=== PATIENT | male | born 1960 | race Caucasian/White ===

== ENCOUNTER 2016-12-16 12:50 | Observation (INO) ==
[2016-12-16] MEDS ORDERED: SODIUM CHLORIDE 0.9% 500 ML IV STA (14:24)
[2016-12-16] MEDS ORDERED: ENOXAPARIN 100 MG/ML SYRINGE SUBCUT STA (14:24)
[2016-12-16] MEDS ORDERED: ASPIRIN 325 MG TABLET PO STA (14:24)
[2016-12-16] MEDS ORDERED: NITROGLYCERIN 2% OINT 1 INCH/GM PACK TOP STA (14:24)
[2016-12-16] MEDS ORDERED: NITROGLYCERIN 2% OINT 1 INCH/GM PACK TOP ONE (14:59)
[2016-12-16] MEDS ORDERED: ASPIRIN 325 MG TABLET ONE (14:59)
[2016-12-16] MEDS ORDERED: ENOXAPARIN 100 MG/ML SYRINGE SUBCUT ONE (14:59)
--- NOTE | 2016-12-16 14:59 | XRay Report ---
Referring Physician: Oleg Bean Exam: XR chest 1V portable Date: December 16, 2016 at 2:21 PM Reason: Chest pain Comparison: Chest one view portable April 24, 2016 Findings: There is borderline cardiomegaly. The interstitial markings are slightly prominent bilaterally, especially at the lower lung zones. This could represent minimal pulmonary edema. No pneumothorax or pleural effusion is identified. No acute osseous process is seen. Impression: 1. Borderline cardiomegaly. 2. Questionable minimal pulmonary edema. PROCEDURE INTERPRETED AT [facility] DEPARTMENT OF RADIOLOGY Final Report Signed by: Dr. Elian Butcher
[2016-12-16 15:01] LABS: Basophils # 0.1 10*3/uL (0.0-0.2); Basophils % 0.9 % (0.0-0.8); Eosinophils # 0.3 10*3/uL (0.0-0.87); Eosinophils % 3.4 % (0.00-10.9); Hematocrit 46.6 VOL% (42.0-52.0); Hemoglobin 15.9 GM/DL (14.0-18.0); Immature Granulocytes % 0.3 %; Immature Granulocytes Absolute 0.03 #; Lymphocytes # 2.9 10*3/uL (1.4-4.0); Lymphocytes % 29.9 % (21.2-54.2); Mean Corpuscular HGB Conc 34.1 GM/DL (32-36); Mean Corpuscular Hemoglobin 31 PG (27-34); Mean Corpuscular Volume 89.6 FL (87-102); Mean Platelet Volume 9.6 FL (9.6-12.0); Monocytes # 0.6 10*3/uL (0.11-0.8); Monocytes % 6.2 % (1.7-12.7); Neutrophils # 5.8 10*3/uL (1.4-7.4); Neutrophils % 59.3 % (38.7-73.9); Platelet Count 231 T/CUMM (130-400); Red Cell Distribution Width 12.7 % (9.3-17.3); White Blood Count 9.7 T/CUMM (4-12)
--- NOTE | 2016-12-16 15:11 | Emergency Department Note ---
Bernardo Sosa Meredith, am scribing for, and in the presence of, Oleg Bean MD 14:21. Vikas Sosa Robert M, MD, personally performed the services described in this documentation, ascribed by Supriya Chang in my presence, and it is both accurate and complete 511 . Arrival - Arrival Chief Complaint: Chest Pain Stated Complaint: chest pain ED Nursing Triage Note: C/O CP starting 3 days ago as well as elevated BP and dizziness. Mode of Arrival: Ambulatory Limitations: No Limitations Source: Patient, Old Records Reviewed, RN Notes Reviewed - History of Present Illness HPI Narrative: Pt is a 56 y/o white male reporting to the ED with c/o intermittent chest pressure and shortness of breath for the past 3 days. He confirms elevated blood pressure and dizziness but denies any nausea. His blood pressure at the time of triage was 164/103. Pt has a history of CAD, HTN, UT, valvular heart disease, anxiety, and HLD. He has had 6 stents. Pt is a current everyday smoker. Onset (ago): day(s) Consistency: intermittent Quality: other (pressure) Allergies/Adverse Reactions: Allergies Allergy/AdvReac Type Severity Reaction Status Date / Time codeine Allergy ANAPHYLAXIS Verified 12/16/16 12:55 Home Medications: Home Medications Medication Instructions Recorded Confirmed Type Carvedilol [Coreg] 12.5 mg PO BID 04/22/16 12/16/16 History Clopidogrel [Plavix] 75 mg PO DAILY 04/22/16 12/16/16 History LORazepam TAB [Ativan Tab] 1 mg PO TID PRN 04/22/16 12/16/16 History [place]-3/Dha/Epa/Fish Oil [Fish Oil 1 capsule PO DAILY 04/22/16 12/16/16 History EC 1,200 mg Softgel] Omeprazole [Prilosec] 40 mg PO BID 04/22/16 12/16/16 History Paroxetine HCl [Paxil] 30 mg PO DAILY 04/22/16 12/16/16 History Tamsulosin [Flomax] 0.4 mg PO BID 04/22/16 12/16/16 History Aspirin EC Tab 81 mg PO DAILY #30 tablet 04/25/16 12/16/16 Rx Simvastatin [Zocor] 20 mg PO BEDTIME 12/16/16 12/16/16 History Review of System - Review of System 12 point system: reviewed and no additional remarkable complaints except as stated - Review of System Constitutional: Present: as per HPI, other (dizziness) Respiratory: Present: as per HPI, other (SOB) Cardiovascular: Present: as per HPI, chest pain, other (hypertension) Gastrointestinal: Present: as per HPI. Absent: nausea Medical,Surgical,& Family Hx - Medical History Cardio: History of: CAD, Hypertension, UT, Valvular Heart Disease, Cardiovascular Problems Psychological: History of: Anxiety Disorders Neurology: No history of: Seizures Endocrine: History of: Dyslipidemia - Surgical History Cardiac Surgeries: Sugical HX of: Cardiac Catheterization (stent x 5 (2014) stent x1 (2016)) - Family History Family History: Reports;: Family Heart Disease (Father) - Social History Smoking Status: Current every day smoker Frequency of Alcohol Use: None Type of Drug Use: None Exam Vital Signs: Vital Signs Temperature 97.2 F L 12/16/16 12:55 Pulse Rate 75 12/16/16 12:55 Respiratory Rate 19 12/16/16 12:55 Blood Pressure 164/103 12/16/16 12:55 O2 Sat by Pulse Oximetry 99 12/16/16 12:55 - General General appearance: alert, in no apparent distress, obese - Head Head exam: Present: atraumatic, normocephalic - Eye Eye exam: Present: normal appearance, PERRL, EOMI - ENT ENT exam: Present: mucous membranes moist, normal external ear exam - Neck Neck exam: Present: full ROM, trachea midline. Absent: tenderness, meningismus , lymphadenopathy, thyromegaly - Chest Chest inspection: Present: symmetric chest wall rise. Absent: tenderness, rash - Respiratory Respiratory exam: Present: normal lung sounds bilaterally. Absent: respiratory distress - Cardiovascular Cardiovascular exam: Present: regular rate, normal rhythm, normal heart sounds. Absent: murmur, rubs, gallop - Abdominal Exam Abdominal exam: Present: soft, normal bowel sounds. Absent: distention, tenderness - Extremities Exam Extremities exam: Present: full ROM, normal capillary refill. Absent: tenderness, pedal edema, calf tenderness - Back Exam Back exam: Present: full ROM. Absent: tenderness - Neurological Exam Neurological exam: Present: alert, oriented X3, CN II-XII intact. Absent: motor sensory deficit - Psychiatric Psychiatric exam: Present: normal affect, normal mood - Skin Skin exam: Present: warm, dry, intact, normal color Course - Consultations Consultation #1: Dr. Denise De Leon will evaluate and admit the patient. Time: 15:10 Results - Labs CBC & BMP: 12/16/16 14:47 Lab Results: I have reviewed the patients labs Labs: Laboratory Tests 12/16/16 14:47 WBC 9.7 RBC 5.20 Hgb 15.9 Hct 46.6 Plt Count 231 Baso % (Auto) 0.9 H - EKG EKG results: interpreted by ERMD, WNL, sinus rhythm, normal axis - Diagnostic Findings Procedure: Chest x-ray: report reviewed by me (Borderline cardiomegaly. Questionable minimal pulmonary edema. )
[2016-12-16 15:22] LABS: Bilirubin,Total 0.5 MG/DL (0.2-1.0); Magnesium 2.1 MG/DL (1.8-2.4); Osmolality,Calculated 279.1 MOS/KG (273-304); Potassium 4.2 MMOL/L (3.5-5.1)
[2016-12-16] MEDS ORDERED: diphenhydrAMINE CAP 25 MG CAPSULE PO ONE (15:24)
[2016-12-16] MEDS ORDERED: DIAZEPAM 5 MG TABLET PO ONE (15:24)
[2016-12-16] MEDS ORDERED: LORazepam 1 MG TABLET PO PRN (15:26)
--- NOTE | 2016-12-16 15:29 | Cardiology History & Physical ---
Assessment and Plan - Time spent with patient Time spent with patient: Greater than 30 minutes Time spent discussing smoking cessation with patient: 3 to 10 minutes (1) Unstable angina Status: Acute Assessment and plan: Typical symptoms with known coronary artery disease. Current Visit: Yes (2) Uncontrolled hypertension Status: Acute Assessment and plan: This is new his blood pressures been controlled it is very labile suspect related to underlying ischemia. Current Visit: Yes (3) Dyslipidemia Status: Chronic Current Visit: Yes (4) Coronary artery disease Status: Chronic Current Visit: Yes Qualifiers: Coronary Disease-Associated Artery/Lesion type: [place] artery [place] vs. transplanted heart: [place] heart Associated angina: with unstable angina Qualified Code(s): I25.110 - Atherosclerotic heart disease of [place] coronary artery with unstable angina pectoris (5) Tobacco use Status: Chronic Current Visit: Yes History of Present Illness Chief complaint: chest pressure History of present illness: Mr. Aaron is a 56 year old male with history of 6 previous stents in the LAD, LCx and RCA. [address] Regalado a few years ago and in 04/2016 he had stenting of the ostial and proximal RCA by Dr. Herman North in POBA of the left circumflex/obtuse marginal at the end of the previously deployed stent by Dr. Regalado. The patient has been followed in outpatient setting by myself. He has had intermittent chest discomfort we have tried him door which did not seem to help and also we had a brief usage of Ranexa. The patient states that he started having pressure in his chest that started on Friday and has been stuttering ever since Friday. It is worse whenever he also is noted that his blood pressure goes up shortly after he notices the chest discomfort. He is not sure which comes first the blood pressure or the chest discomfort although he checked his pressure when his had this chest pressure and has noted that he has accelerated blood pressure with a pressures been 170/100 range this was similar to the blood pressure that was recorded upon his arrival this morning. The patient called our office earlier today to get him with me but has not been callbacks we came to the emergency room. No nausea or diaphoresis. He is accompanied by his live who is a nurse. Home Medications Medication Instructions Recorded Confirmed Type Carvedilol [Coreg] 12.5 mg PO BID 04/22/16 12/16/16 History Clopidogrel [Plavix] 75 mg PO DAILY 04/22/16 12/16/16 History LORazepam TAB [Ativan Tab] 1 mg PO TID PRN 04/22/16 12/16/16 History [place]-3/Dha/Epa/Fish Oil [Fish Oil 1 capsule PO DAILY 04/22/16 12/16/16 History EC 1,200 mg Softgel] Omeprazole [Prilosec] 40 mg PO BID 04/22/16 12/16/16 History Paroxetine HCl [Paxil] 30 mg PO DAILY 04/22/16 12/16/16 History Tamsulosin [Flomax] 0.4 mg PO BID 04/22/16 12/16/16 History Aspirin EC Tab 81 mg PO DAILY #30 tablet 04/25/16 12/16/16 Rx Simvastatin [Zocor] 20 mg PO BEDTIME 12/16/16 12/16/16 History Allergies Allergy/AdvReac Type Severity Reaction Status Date / Time codeine Allergy ANAPHYLAXIS Verified 12/16/16 12:55 - Constitutional Constitutional: Absent: anorexia, increased appetite, malaise - EENT Eyes: Absent: blurry vision, loss of vision Ears: Absent: decreased hearing Nose, mouth and throat: Absent: headache(s), nasal congestion - Cardiovascular Cardiovascular: Present: chest pain at rest, chest pain with activity, dyspnea, dyspnea on exertion. Absent: edema, orthopnea, palpitations - Respiratory Respiratory: Present: dyspnea on exertion. Absent: cough, dyspnea - Gastrointestinal Gastrointestinal: Absent: abdominal pain, fecal incontinence, nausea - Genitourinary Genitourinary: Present: difficulty urinating. Absent: dysuria, hematuria - Musculoskeletal Musculoskeletal: Absent: arthralgias, joint swelling - Neurological Neurological: Absent: abnormal gait, abnormal speech, disequilibrium - Psychiatric Psychiatric: Present: anxiety, depression - Endocrine Endocrine: Present: heat intolerance. Absent: cold intolerance - Hematologic/Lymphatic Hematologic/Lymphatic: Absent: easy bleeding, easy bruising Medical,Surgical,& Family Hx - Medical History Cardio: History of: CAD, Hypertension, NM, Cardiovascular Problems Psychological: History of: Anxiety Disorders Neurology: No history of: Seizures Endocrine: History of: Dyslipidemia - Surgical History Cardiac Surgeries: Sugical HX of: Cardiac Catheterization (stent x 5 (2014) stent x1 (2016)) - Family History Family History: Reports;: Family Heart Disease (Father) - Social History Smoking Status: Current every day smoker Frequency of Alcohol Use: None Type of Drug Use: None Marital Status: Lives With:: Spouse Functional capacity: independent ambulation Cardiology Physical Exam - Constitutional Vitals: Vital Signs Temp Pulse Resp BP Pulse Ox 97.2 F L 75 19 164/103 99 12/16/16 12:55 12/16/16 12:55 12/16/16 12:55 12/16/16 12:55 12/16/16 12:55 Intake and Output 12/15/16 12/16/16 12/16/16 23:59 07:59 15:59 Other: Weight 90.718 kg Patient Weight 12/16/16 23:59 Weight 90.718 kg General appearance: over weight - Head Head exam: Present: normal inspection - Eye Eye exam: Present: EOMI Pupils: Present: DIANA - ENT ENT exam: Present: normal exam - Neck Neck exam: Present: normal inspection - Respiratory Respiratory exam: Present: clear to auscultation bilaterally - Cardiovascular Cardiovascular exam: Present: regular rate and rhythm - GI/Abdominal GI/Abdominal exam: Present: normal bowel sounds - Extremities Exam Extremities exam: Present: normal inspection - Back Exam Back exam: Present: normal inspection - Neurological Exam Neurological exam: Present: alert, oriented X3 - Psychiatric Psychiatric exam: Present: anxious - Skin Skin exam: Present: normal color, warm Result/EKG - Labs CBC & BMP: 12/16/16 14:47 12/16/16 14:47 Labs: Laboratory Results - last 24 hr 12/16/16 12/16/16 12/16/16 14:47 14:47 14:47 WBC 9.7 RBC 5.20 Hgb 15.9 Hct 46.6 MCV 89.6 MCH 31 MCHC 34.1 RDW 12.7 Plt Count 231 MPV 9.6 Neut % (Auto) 59.3 Lymph % (Auto) 29.9 [place] % (Auto) 6.2 Eos % (Auto) 3.4 Baso % (Auto) 0.9 H Neut # (Auto) 5.8 Lymph # (Auto) 2.9 [place] # (Auto) 0.6 Eos # (Auto) 0.3 Baso # (Auto) 0.1 Immature Gran % 0.3 Nucleated RBC % 0.0 Immature Gran # 0.03 Nucleated RBCs # 0.00 Sodium 142 Potassium 4.2 Chloride 108 H Carbon Dioxide 26 Anion Gap 12.2 BUN 7 Creatinine 0.60 L GFR Calculation 129 BUN/Creatinine Ratio 11.00 Glucose 82 Calculated Osmolality 279.1 Calcium 9.0 Magnesium 2.1 Total Bilirubin 0.50 AST 32 ALT 51 Alkaline Phosphatase 80 Troponin I < 0.015 Total Protein 7.0 Albumin 4.0 Globulin 3.0 Albumin/Globulin Ratio 1.3 Lipase 107.0 - EKG EKG results: interpreted by me, WNL
--- NOTE | 2016-12-16 15:33 | History and Physical Update ---
Sedation H&P Update - History and Physical H&P was reviewed, the patient examined and there: are no changes in the patients condition since last H&P was completed. - Dictation Physical: refer to scanned H&P - Physical Exam Mental Status: alert and oriented Heart: regular rate and rhythm Lung: clear to auscultation Abdomen: within normal limits Vitals: within normal limits - Sedation Plan for Sedation: moderate Patient Consent: Procedure disscussed with patient and patinet has consented., Risks and benefits were discussed with patient,including infection,, bleeding, injury to surrounding structures, seizure, temporary nerve, Patient understands and accepts potential risks/benefits and agrees to, proceed. ASA Class: III Airway Assessment: Class III: Soft palate, base of uvula visible
[2016-12-16] MEDS ORDERED: LIDOCAINE 1% 20 ML VIAL ONE (15:47)
[2016-12-16] MEDS ORDERED: HEPARIN/NACL 0.9% 2 UNITS/ML 1,000 ML IV ONE (15:47)
[2016-12-16] MEDS ORDERED: DIAZEPAM 5 MG TABLET ONE (16:20)
[2016-12-16] MEDS ORDERED: diphenhydrAMINE CAP 50 MG CAPSULE ONE (16:21)
[2016-12-16] MEDS: SODIUM CHLORIDE 0.45% 1,000 ML IV SCH ×3 (16:28→23:41)
[2016-12-16] MEDS ORDERED: fentaNYL 100 MCG/2 ML VIAL ONE (16:43)
[2016-12-16] MEDS ORDERED: MIDAZOLAM 2 MG/2 ML VIAL ONE ×3 (16:43→17:23)
[2016-12-16] MEDS ORDERED: VERAPAMIL 5 MG/2 ML VIAL ONE (16:56)
[2016-12-16] MEDS ORDERED: NITROGLYCERIN DRIP 50 MG/250 ML BOTTLE IV ONE (16:56)
[2016-12-16] MEDS ORDERED: diphenhydrAMINE 50 MG/1 ML VIAL ONE (16:59)
[2016-12-16] MEDS ORDERED: HEPARIN/NACL 0.9% 2 UNITS/ML 500 ML IV ONE (17:14)
[2016-12-16] MEDS ORDERED: ENOXAPARIN 60 MG/0.6 ML SYRINGE ONE (17:14)
[2016-12-16] MEDS ORDERED: ZALEPLON 5 MG CAPSULE PO PRN (18:11)
[2016-12-16] MEDS ORDERED: ACETAMINOPHEN 325 MG TABLET PO PRN (18:11)
--- NOTE | 2016-12-16 18:23 | Cardiac Catheterization ---
Date of Procedure:: 12/16/16 Pre-op Diagnosis: Unstable angina Post-op diagnosis: other (High grade OM1 non-dilatable lesion) Procedure: Procedure: 1. LHC with resting hemodynamics 2. Selective left and right coronary angiography 3. Failed attempt PCI of the first obtuse marginal After signed an informed consent was obtained, the patient was prepped and draped in standard fashion for right radial access. Time out was recorded. 0.5 mL of 1% lidocaine were infiltrated in the skin and subcutaneous tissue overlying the right radial artery and Seldinger technique was utilized with a Angiocath to obtain access to the right radial artery. A [employer] glide wire was then advanced into the midforearm under fluoroscopic guidance. The Angiocath was removed and a 6 [place] Terumo glide sheath was placed over the Glidewire. The sheath was aspirated and flushed and then 5 mg of verapamil and 200 g of nitroglycerin were given through the sheath. At this time an 035 J-wire was used to guide a [place] 6 [place] catheter into the central aorta across the aortic valve and into the ventricle. Pressure measurements and pullback measurements were obtained. The [place] catheter was then used to engage the left main coronary artery and multiple orthogonal views of the left system were obtained. The catheter then was torqued into the right coronary artery and orthogonal views of the right system were obtained. The catheter was then exchanged over the wire. The sheath was aspirated and flushed. The can reforming machine operator reviewed the films. At this time 40 mg of IV Lovenox were given the patient was several hours out from the subcu dose in the emergency room. And EBU 4.0 guiding catheter was unsuccessful in engaging the left main coronary artery ultimately in a L1 guide was used to engage the left main coronary with excellent backup. At this time a 180 cm QA on Request pro-water wire was advanced into the distal obtuse marginal. This was followed by a 2.5 x 15 mm [place] balloon. Multiple inflations were made 3. The balloon was removed and attempts to pass a 2.5 x 20 mm Synergy drug-eluting stent were unsuccessful. A saray wire was placed. At this time a 2.5 x 12 mm NC trek was used and 4 inflations were made to maximum of 12 ann. There appear to be angiographically little change. Attempts to pass a 2.5 x 12 mm Synergy drug-eluting stent were still unsuccessful. At this time we removed the saray wire and tried to pass a cutting balloon without success it would not make it into the obtuse marginal it would hang in the previously deployed stent in the left circumflex. Due to contrast exposure radiation exposure and prolonged efforts it was felt that this procedure and reached maximum benefit and was terminated. The wires removed 2 orthogonal views were obtained the cath exchanged over the wire the sheath was aspirated and flushed. The can reforming machine operator reviewed the films. And a TR band was placed over the glide sheath and used for hemostasis. Total contrast exposure 280 cc of omnipaque Total x-ray exposure: 19.4 min fluoroscopy time and 1731 mGy air Kerma Findings: 1. Hemodynamics LV: 141/0 EDP:10 Ao:136/71 2. Left main: Angiographically normal 3: Left anterior descending artery: Previously deployed stents are widely patent but there is mild distal disease 4: Left circumflex artery: Previously deployed stents in the proximal circumflex are widely patent. There is a moderate size first obtuse marginal that received POBA in April of last year. There is an aneurysmal or pre-ectatic area before a very high-grade ringlike stenosis this 99%. The vessel is diffusely diseased after this. This lesion was non-dilatable with an NC balloon. Attempts to pass a cutting balloon were unsuccessful. No stent would pass the area of stenosis. There is mild distal disease throughout. 5: Right coronary artery: Previously deployed stents RCA are widely patent Assessment: 1. Non-dilatable high-grade ringlike obtuse marginal lesion as described above with multiple efforts using saray wire, NC balloon, Cutting Balloon and compliant balloon without success. Unable to pass short and long stents. Excellent backup and support with an AL1 guide Plan: 1. Therapeutic lifestyle changes. 2. Medical management and therapeutic lifestyle changes aggressively including smoking cessation 3. Tight blood pressure control Implants: None Anesthesia: moderate conscious sedation Surgeon / Physician: Denise Blanca Director Technical: none Estimated blood loss: none Specimens: none sent Condition: stable Disposition: floor - Medications / Follow-up
[2016-12-16] MEDS ORDERED: hydrALAZINE 20 MG/1 ML VIAL IV PRN (18:24)
[2016-12-16] MEDS: CARVEDILOL 12.5 MG TABLET PO SCH (18:59)
[2016-12-16] MEDS ORDERED: SIMVASTATIN 20 MG TABLET PO SCH (21:00)
[2016-12-16] MEDS: TAMSULOSIN 0.4 MG CAPSULE PO SCH (21:18)
[2016-12-16] MEDS: PANTOPRAZOLE 40 MG TABLET PO SCH (21:18)
[2016-12-17 03:34] LABS: Basophils # 0.1 10*3/uL (0.0-0.2); Basophils % 1.1 % (0.0-0.8); Eosinophils # 0.3 10*3/uL (0.0-0.87); Eosinophils % 3.5 % (0.00-10.9); Hematocrit 41.7 VOL% (42.0-52.0); Hemoglobin 14.2 GM/DL (14.0-18.0); Immature Granulocytes % 0.4 %; Immature Granulocytes Absolute 0.04 #; Lymphocytes # 2.9 10*3/uL (1.4-4.0); Lymphocytes % 30.5 % (21.2-54.2); Mean Corpuscular HGB Conc 34.1 GM/DL (32-36); Mean Corpuscular Hemoglobin 31 PG (27-34); Mean Corpuscular Volume 90.1 FL (87-102); Monocytes # 0.7 10*3/uL (0.11-0.8); Monocytes % 7.5 % (1.7-12.7); Neutrophils # 5.4 10*3/uL (1.4-7.4); Platelet Count 227 T/CUMM (130-400); Red Blood Count 4.63 MC/CUMM (3.8-5.5); White Blood Count 9.5 T/CUMM (4-12)
[2016-12-17 03:47] LABS: Calcium 8.4 MG/DL (8.5-10.1); Troponin I Only 0.034 NG/ML (0.00-0.045)
--- NOTE | 2016-12-17 08:08 | Discharge Summary ---
Hospital Course - Hospital Course Hospital Course: Patient admitted to the hospital with substernal chest pressure and uncontrolled hypertension. He had typical anginal symptoms and known advanced coronary disease. He was taken from the emergency room to the [facility] for left heart catheterization had p.o. twice daily of the first obtuse marginal with multiple balloons and unable to pass a cutting balloon or a stent to the area of high-grade very focal ringlike stenosis. Patient had no apparent complication post PCI his vital signs remained stable his labs are all good he was discharged home home in the a.m. of 12/17/2016 to follow with me as previously scheduled. This obtuse marginal was small previously p.o. twice daily without significant change in the vessel. - Time spent with patient Time with patient DS: Less than 30 minutes Time spent discussing smoking cessation with patient: 3 to 10 minutes Diagnosis - Discharge Diagnosis (1) Unstable angina Status: Acute (2) Uncontrolled hypertension Status: Acute (3) Dyslipidemia Status: Chronic (4) Coronary artery disease Status: Chronic (5) Tobacco use Status: Chronic Specialty Discharge - Follow Up or Referrals Follow up with: Denise Blanca DO [Physician] - (as previously scheduled.) Discharge Plan - Discharge Data Disposition: Disch To Home/Self Care Condition at Discharge: Stable Discharge Diet: advance to your usual diet Activity: resume usual activities as tolerated Hygiene: no restrictions Weight Bearing at Discharge: full weight bearing Driving: no restrictions Contact your physician if you experience:: fever over 101, Difficulty voiding, Redness or swelling, Nausea/Vomiting, Shortness of breath, Bleeding, pain uncontrolled by pain medications - Discharge Medications New Isosorbide Mononitrate [Imdur] 15 mg PO DAILY #30 tablet Continue Omeprazole [Prilosec] 40 mg PO BID Tamsulosin [Flomax] 0.4 mg PO BID Paroxetine HCl [Paxil] 30 mg PO DAILY [place]-3/Dha/Epa/Fish Oil [Fish Oil EC 1,200 mg Softgel] 1 capsule PO DAILY LORazepam TAB [Ativan Tab] 1 mg PO TID PRN PRN Reason: Anxiety Clopidogrel [Plavix] 75 mg PO DAILY Carvedilol [Coreg] 12.5 mg PO BID Aspirin EC Tab 81 mg PO DAILY #30 tablet Simvastatin [Zocor] 20 mg PO BEDTIME - Follow Up or Referral - Forms/Instructions Exam - Constitutional Vitals: Period Temp Pulse Resp BP Sys/To Pulse Ox Last 24 Hr 96.3 F-98.4 F 62-78 16-20 101-145/60-97 94-99 - Head Head exam: Present: normal inspection - Eye Pupils: Present: DIANA - Respiratory Respiratory exam: Present: clear to auscultation bilaterally - Cardiovascular Cardiovascular exam: Present: regular rate and rhythm Discharge Results Procedures and tests throughout hospitalization: Pending Orders 12/16/16 15:45 CL heart Routine Labs on day of discharge: Labs from last 24 hours 12/17/16 12/17/16 12/16/16 02:23 02:23 20:55 WBC 9.5 RBC 4.63 Hgb 14.2 Hct 41.7 L MCV 90.1 MCH 31 MCHC 34.1 RDW 13.0 Plt Count 227 MPV 10.0 Neut % (Auto) 57.0 Lymph % (Auto) 30.5 [place] % (Auto) 7.5 Eos % (Auto) 3.5 Baso % (Auto) 1.1 H Neut # (Auto) 5.4 Lymph # (Auto) 2.9 [place] # (Auto) 0.7 Eos # (Auto) 0.3 Baso # (Auto) 0.1 Immature Gran % 0.4 Nucleated RBC % 0.0 Immature Gran # 0.04 Nucleated RBCs # 0.00 Sodium 143 Potassium 4.0 Chloride 108 H Carbon Dioxide 26 Anion Gap 13.0 BUN 7 Creatinine 0.60 L GFR Calculation 129 BUN/Creatinine Ratio 11.00 Glucose 95 Calculated Osmolality 282.0 Calcium 8.4 L Troponin I 0.034 0.020 DS: Provider Date of admission: 12/16/16 15:24 Primary care physician: . No PCP Attending physician on admission: Denise Blanca DO Discharging clinician: Denise Blanca DO Expected date of discharge: 12/17/16
[2016-12-17 08:12] VITALS: BP 107/66
[2016-12-17] MEDS: SODIUM CHLORIDE 0.45% 1,000 ML IV SCH (08:32)
[2016-12-17] MEDS: TAMSULOSIN 0.4 MG CAPSULE PO SCH (08:35)
[2016-12-17] MEDS: CARVEDILOL 12.5 MG TABLET PO SCH (08:35)
[2016-12-17] MEDS: PANTOPRAZOLE 40 MG TABLET PO SCH (08:36)
[2016-12-17] MEDS ORDERED: CLOPIDOGREL 75 MG TABLET PO SCH (09:00)
[2016-12-17] MEDS ORDERED: ASPIRIN EC 81 MG TABLET PO SCH (09:00)
[2016-12-17] MEDS ORDERED: PARoxetine 10 MG TABLET PO SCH (09:00)
[2016-12-17] MEDS ORDERED: OMEGA 3 ACID ETHYL ESTERS 1 GM CAPSULE PO SCH (09:00)
--- NOTE | 2016-12-17 09:34 | EKG Report ---
Stationary ECG Study [facility] ER Test Date: 12/16/2016 12:55:02 PM Pat Name: BRANDON HOWARD Department: Room: 262 Gender: M Test Carrier: : 1960 Requested by: Oleg Bean Order Number: [id number] Reading MD: DAGOBERTO VALVERDE Intervals [place] Rate: 64 P: 43 WV: 150 QRS: 5 QRSD: 83 T: 14 QT: 391 QTc: 400 Interpretive Statements SINUS RHYTHM Electronically Signed On 12-17-16 17:58:36 FLEET MANAGER/DISPATCH by DAGOBERTO VALVERDE [email or web address]
== END 2016-12-17 10:20 | disposition home or self-care (01) ==
LOC: N.ED 12:50 → N.EDINP 12:50 → N.TELES 16:40
PROVIDERS: ADMIT Internal Medicine Cardiovascular Disease; ATTEND Internal Medicine Cardiovascular Disease
PROC: CLCCHCL (ICD-10-PCS; 2016-12-16 16:15)

== ENCOUNTER 2018-05-25 05:59 | Observation (INO) ==
[2018-05-25] MEDS ORDERED: DIAZEPAM 5 MG TABLET PO ONE (06:00)
[2018-05-25] MEDS ORDERED: ASPIRIN 325 MG TABLET PO ONE (06:00)
[2018-05-25] MEDS ORDERED: diphenhydrAMINE CAP 25 MG CAPSULE PO ONE (06:00)
[2018-05-25] MEDS ORDERED: HEPARIN/NACL 0.9% 2 UNITS/ML 1,000 ML IV ONE (06:40)
[2018-05-25] MEDS ORDERED: DIAZEPAM 5 MG TABLET ONE (06:48)
[2018-05-25] MEDS ORDERED: ASPIRIN 325 MG TABLET ONE (06:48)
[2018-05-25] MEDS ORDERED: diphenhydrAMINE CAP 25 MG CAPSULE ONE (06:48)
[2018-05-25 06:49] LABS: Basophils # 0.1 10*3/uL (0.0-0.2); Eosinophils # 0.3 10*3/uL (0.0-0.87); Eosinophils % 3.1 % (0.00-10.9); Hematocrit 43.7 VOL% (42.0-52.0); Hemoglobin 15.3 GM/DL (14.0-18.0); Immature Granulocytes % 0.6 %; Immature Granulocytes Absolute 0.05 #; Lymphocytes # 1.9 10*3/uL (1.4-4.0); Lymphocytes % 23.1 % (21.2-54.2); Mean Corpuscular Hemoglobin 30 PG (27-34); Mean Platelet Volume 9.8 FL (9.6-12.0); Monocytes # 0.5 10*3/uL (0.11-0.8); Monocytes % 6.3 % (1.7-12.7); Neutrophils # 5.3 10*3/uL (1.4-7.4); Neutrophils % 65.9 % (38.7-73.9); Platelet Count 241 T/CUMM (130-400); Red Blood Count 5.08 MC/CUMM (3.8-5.5); Red Cell Distribution Width 13.2 % (9.3-17.3); White Blood Count 8.1 T/CUMM (4-12)
[2018-05-25] MEDS ORDERED: NITROGLYCERIN DRIP 50 MG/250 ML BOTTLE IV ONE (06:52)
[2018-05-25] MEDS ORDERED: fentaNYL 100 MCG/2 ML VIAL ONE ×2 (06:53→07:58)
[2018-05-25] MEDS ORDERED: VERAPAMIL 5 MG/2 ML VIAL ONE (06:53)
[2018-05-25] MEDS ORDERED: MIDAZOLAM 2 MG/2 ML VIAL ONE ×3 (06:53→07:29)
[2018-05-25] MEDS: SODIUM CHLORIDE 0.45% 1,000 ML IV SCH ×2 (06:55→15:08)
[2018-05-25 07:04] LABS: Calcium 8.5 MG/DL (8.5-10.1); Osmolality,Calculated 279.4 MOS/KG (273-304)
[2018-05-25] MEDS ORDERED: LIDOCAINE 1% 20 ML VIAL ONE (07:17)
[2018-05-25] MEDS ORDERED: ENOXAPARIN 60 MG/0.6 ML SYRINGE ONE (07:28)
[2018-05-25] MEDS ORDERED: HEPARIN/NACL 0.9% 2 UNITS/ML 500 ML IV ONE (07:58)
[2018-05-25] MEDS ORDERED: ZALEPLON 5 MG CAPSULE PO PRN (08:18)
[2018-05-25] MEDS ORDERED: ONDANSETRON 4 MG/2 ML VIAL IV PRN (08:18)
[2018-05-25] MEDS ORDERED: NITROGLYCERIN SL 0.4 MG TABLET SL PRN ×2 (08:18→08:19)
[2018-05-25] MEDS ORDERED: ACETAMINOPHEN 325 MG TABLET PO PRN (08:18)
[2018-05-25] MEDS ORDERED: LORazepam 1 MG TABLET PO PRN (08:19)
[2018-05-25] MEDS ORDERED: DICYCLOMINE 20 MG TABLET PO PRN (08:19)
[2018-05-25] MEDS ORDERED: CLOPIDOGREL 300 MG TABLET ONE (08:21)
[2018-05-25] MEDS ORDERED: ONDANSETRON 4 MG/2 ML VIAL ONE (08:35)
[2018-05-25] MEDS: CARVEDILOL 25 MG TABLET PO SCH ×2 (09:55→21:19)
[2018-05-25] MEDS: ISOSORBIDE MONONITRATE 30 MG TABLET PO SCH (09:55)
[2018-05-25] MEDS: CLOPIDOGREL 75 MG TABLET PO SCH (09:56)
[2018-05-25] MEDS: ASPIRIN EC 81 MG TABLET PO SCH (12:54)
[2018-05-25] MEDS: TAMSULOSIN 0.4 MG CAPSULE PO SCH (12:54)
[2018-05-25] MEDS: PARoxetine 20 MG TABLET PO SCH (12:54)
[2018-05-25] MEDS: PANTOPRAZOLE 40 MG TABLET PO SCH ×2 (12:54→21:20)
[2018-05-25] MEDS ORDERED: SIMVASTATIN 20 MG TABLET PO SCH (21:00)
[2018-05-25] MEDS ORDERED: OMEGA 3 ACID ETHYL ESTERS 1 GM CAPSULE PO SCH (21:00)
[2018-05-25] MEDS ORDERED: LOSARTAN 25 MG TABLET PO SCH (21:00)
[2018-05-26 03:43] LABS: Basophils # 0.1 10*3/uL (0.0-0.2); Basophils % 0.8 % (0.0-0.8); Eosinophils # 0.3 10*3/uL (0.0-0.87); Eosinophils % 2.9 % (0.00-10.9); Hematocrit 45.2 VOL% (42.0-52.0); Hemoglobin 15.7 GM/DL (14.0-18.0); Immature Granulocytes % 0.4 %; Immature Granulocytes Absolute 0.04 #; Lymphocytes # 2.5 10*3/uL (1.4-4.0); Lymphocytes % 25.9 % (21.2-54.2); Mean Corpuscular HGB Conc 34.7 GM/DL (32-36); Mean Corpuscular Hemoglobin 30 PG (27-34); Mean Corpuscular Volume 85.9 FL (87-102); Mean Platelet Volume 9.6 FL (9.6-12.0); Monocytes # 0.7 10*3/uL (0.11-0.8); Neutrophils # 6.2 10*3/uL (1.4-7.4); Platelet Count 229 T/CUMM (130-400); Red Blood Count 5.26 MC/CUMM (3.8-5.5); Red Cell Distribution Width 13.2 % (9.3-17.3); White Blood Count 9.8 T/CUMM (4-12)
[2018-05-26 04:02] LABS: Calcium 8.9 MG/DL (8.5-10.1); Osmolality,Calculated 278.4 MOS/KG (273-304); Potassium 4.3 MMOL/L (3.5-5.1)
[2018-05-26 08:04] VITALS: BP 123/78
[2018-05-26] MEDS: ISOSORBIDE MONONITRATE 30 MG TABLET PO SCH ×2 (08:06→08:07)
[2018-05-26] MEDS: ASPIRIN EC 81 MG TABLET PO SCH (08:06)
[2018-05-26] MEDS: CARVEDILOL 25 MG TABLET PO SCH (08:06)
[2018-05-26] MEDS: PARoxetine 20 MG TABLET PO SCH (08:06)
[2018-05-26] MEDS: PANTOPRAZOLE 40 MG TABLET PO SCH (08:06)
[2018-05-26] MEDS: CLOPIDOGREL 75 MG TABLET PO SCH (08:06)
[2018-05-26] MEDS: TAMSULOSIN 0.4 MG CAPSULE PO SCH (08:06)
== END 2018-05-26 08:28 | disposition home or self-care (01) ==
LOC: N.TELES 05:59 → N.CL 05:59 → N.TELES 09:26
PROVIDERS: ADMIT Internal Medicine Cardiovascular Disease; ATTEND Internal Medicine Cardiovascular Disease
PROC: CLCCHCL (ICD-10-PCS; 2018-05-25 08:45)

== ENCOUNTER 2019-07-28 09:20 | Observation (INO) ==
[2019-07-28] MEDS ORDERED: ASPIRIN 325 MG TABLET PO STA (10:11)
[2019-07-28 10:38] LABS: Basophils # 0.1 10*3/uL (0.0-0.2); Eosinophils # 0.2 10*3/uL (0.0-0.87); Eosinophils % 2.4 % (0.00-10.9); Hematocrit 44.8 VOL% (42.0-52.0); Hemoglobin 15.3 GM/DL (14.0-18.0); Immature Granulocytes % 0.5 %; Immature Granulocytes Absolute 0.04 #; Lymphocytes # 1.6 10*3/uL (1.4-4.0); Lymphocytes % 20.5 % (21.2-54.2); Mean Corpuscular HGB Conc 34.2 GM/DL (32-36); Mean Platelet Volume 9.8 FL (9.6-12.0); Monocytes % 6.3 % (1.7-12.7); Neutrophils % 69.3 % (38.7-73.9); Platelet Count 219 T/CUMM (130-400); Red Blood Count 5.09 MC/CUMM (3.8-5.5); Red Cell Distribution Width 13.3 % (9.3-17.3)
[2019-07-28 10:48] LABS: PT Patient Result 10.5 SECS (9.6-12.2); Partial Thromboplastin Time 26.1 SECS (20.8-36.0)
[2019-07-28 10:50] LABS: Troponin I < 0.015 NG/ML (0.00-0.045)
[2019-07-28 10:53] LABS: Albumin 3.7 G/DL (3.4-5.0); Bilirubin,Total 0.4 MG/DL (0.2-1.0); Osmolality,Calculated 272.7 MOS/KG (273-304); Total Protein 7.2 G/DL (6.4-8.3)
[2019-07-28] MEDS ORDERED: diphenhydrAMINE CAP 25 MG CAPSULE PO PRN (12:43)
[2019-07-28] MEDS ORDERED: MORPHINE 4 MG/1 ML VIAL IV PRN (12:43)
[2019-07-28] MEDS ORDERED: POTASSIUM CHLORIDE 20 MEQ TABLET PO PRN (12:43)
[2019-07-28] MEDS ORDERED: ACETAMINOPHEN 325 MG TABLET PO PRN (12:43)
[2019-07-28] MEDS ORDERED: BISACODYL 5 MG TABLET PO PRN (12:43)
[2019-07-28] MEDS ORDERED: MAGNESIUM SULF RIDER 2 GM in PREMIX 1 EACH IV PRN ×2 (12:43→20:54)
[2019-07-28] MEDS ORDERED: MAGNESIUM SULF RIDER 4 GM in PREMIX 1 EACH IV PRN (12:43)
[2019-07-28] MEDS ORDERED: ZALEPLON 5 MG CAPSULE PO PRN (12:43)
[2019-07-28] MEDS ORDERED: ONDANSETRON 4 MG/2 ML VIAL IV PRN (12:43)
[2019-07-28] MEDS ORDERED: LACTULOSE 20 GM/30 ML UDCUP PO PRN (12:43)
[2019-07-28] MEDS ORDERED: guaiFENesin/DM ER 600-30 MG TABLET PO PRN (12:43)
[2019-07-28] MEDS ORDERED: LORazepam 1 MG TABLET PO PRN (12:53)
[2019-07-28 14:11] LABS: Troponin I < 0.015 NG/ML (0.00-0.045)
[2019-07-28] MEDS ORDERED: oxyCODONE/ACETAMINOPHEN 5-325 MG TABLET PO PRN (15:17)
[2019-07-28] MEDS: ENOXAPARIN 100 MG/ML SYRINGE SUBCUT SCH (15:20)
[2019-07-28] MEDS: NITROGLYCERIN 2% OINT 1 INCH/GM PACK TOP SCH (15:20)
[2019-07-28 16:26] LABS: Troponin I < 0.015 NG/ML (0.00-0.045)
[2019-07-28 19:15] LABS: Troponin I < 0.015 NG/ML (0.00-0.045)
[2019-07-28] MEDS ORDERED: POTASSIUM CHLORIDE RIDER 10 MEQ in PREMIX 1 EACH IV PRN (20:54)
[2019-07-28] MEDS ORDERED: NON-FORMULARY MEDICATION (Omeprazole 20 MG) PO SCH (21:00)
[2019-07-28] MEDS: RANOLAZINE 500 MG TABLET PO SCH (21:15)
[2019-07-28] MEDS: SIMVASTATIN 20 MG TABLET PO SCH (21:16)
[2019-07-28] MEDS: CARVEDILOL 25 MG TABLET PO SCH (21:16)
[2019-07-29] MEDS: ENOXAPARIN 100 MG/ML SYRINGE SUBCUT SCH (01:50)
[2019-07-29] MEDS: NITROGLYCERIN 2% OINT 1 INCH/GM PACK TOP SCH ×4 (01:54→21:39)
[2019-07-29 04:31] LABS: Basophils # 0.1 10*3/uL (0.0-0.2); Basophils % 0.7 % (0.0-0.8); Eosinophils # 0.3 10*3/uL (0.0-0.87); Eosinophils % 3.6 % (0.00-10.9); Hematocrit 42.9 VOL% (42.0-52.0); Hemoglobin 14.7 GM/DL (14.0-18.0); Immature Granulocytes % 0.6 %; Immature Granulocytes Absolute 0.05 #; Lymphocytes % 33.4 % (21.2-54.2); Mean Corpuscular HGB Conc 34.3 GM/DL (32-36); Mean Corpuscular Volume 87.9 FL (87-102); Mean Platelet Volume 9.8 FL (9.6-12.0); Monocytes % 6.5 % (1.7-12.7); Neutrophils % 55.2 % (38.7-73.9); Platelet Count 208 T/CUMM (130-400); Red Blood Count 4.88 MC/CUMM (3.8-5.5); Red Cell Distribution Width 13.3 % (9.3-17.3)
[2019-07-29 04:57] LABS: Calcium 8.6 MG/DL (8.5-10.1); Osmolality,Calculated 281.1 MOS/KG (273-304); Risk Ratio 4.5; Thyroid Stimulating Hormone 1.27 uIU/ml (0.358-3.74); VLDL CHOLESTEROL 65.6 MG/DL
[2019-07-29] MEDS ORDERED: diphenhydrAMINE CAP 25 MG CAPSULE PO ONE (06:00)
[2019-07-29] MEDS ORDERED: DIAZEPAM 5 MG TABLET PO ONE (06:00)
[2019-07-29] MEDS ORDERED: CLOPIDOGREL 75 MG TABLET ONE (06:48)
[2019-07-29] MEDS: CLOPIDOGREL 75 MG TABLET PO SCH ×2 (07:00→10:37)
[2019-07-29] MEDS ORDERED: HEPARIN/NACL 0.9% 2 UNITS/ML 1,000 ML IV ONE (07:05)
[2019-07-29] MEDS ORDERED: LIDOCAINE 1% 20 ML VIAL ONE (07:05)
[2019-07-29] MEDS ORDERED: MIDAZOLAM 2 MG/2 ML VIAL ONE (07:28)
[2019-07-29] MEDS ORDERED: fentaNYL 100 MCG/2 ML VIAL ONE (07:29)
[2019-07-29] MEDS ORDERED: ENOXAPARIN 60 MG/0.6 ML SYRINGE ONE (07:39)
[2019-07-29] MEDS ORDERED: NITROGLYCERIN DRIP 50 MG/250 ML BOTTLE IV ONE (08:09)
[2019-07-29] MEDS ORDERED: CLOPIDOGREL 300 MG TABLET ONE (08:34)
[2019-07-29] MEDS: PANTOPRAZOLE 40 MG TABLET PO SCH (11:19)
[2019-07-29] MEDS: TAMSULOSIN 0.4 MG CAPSULE PO SCH (11:19)
[2019-07-29] MEDS: PARoxetine 10 MG TABLET PO SCH (11:19)
[2019-07-29] MEDS: RANOLAZINE 500 MG TABLET PO SCH ×2 (11:19→21:34)
[2019-07-29] MEDS: CARVEDILOL 25 MG TABLET PO SCH ×2 (11:20→21:34)
[2019-07-29] MEDS: ASPIRIN EC 81 MG TABLET PO SCH (11:20)
[2019-07-29] MEDS: CILOSTAZOL 50 MG TABLET PO SCH ×2 (11:20→21:33)
[2019-07-29] MEDS: SIMVASTATIN 20 MG TABLET PO SCH (21:34)
[2019-07-30 04:10] LABS: Basophils # 0.1 10*3/uL (0.0-0.2); Basophils % 0.9 % (0.0-0.8); Eosinophils # 0.3 10*3/uL (0.0-0.87); Eosinophils % 3.4 % (0.00-10.9); Hematocrit 42.5 VOL% (42.0-52.0); Hemoglobin 14.3 GM/DL (14.0-18.0); Immature Granulocytes % 0.3 %; Immature Granulocytes Absolute 0.03 #; Lymphocytes # 2.3 10*3/uL (1.4-4.0); Lymphocytes % 26.1 % (21.2-54.2); Mean Corpuscular HGB Conc 33.6 GM/DL (32-36); Mean Corpuscular Volume 88.4 FL (87-102); Mean Platelet Volume 9.6 FL (9.6-12.0); Monocytes % 6.1 % (1.7-12.7); Neutrophils % 63.2 % (38.7-73.9); Platelet Count 200 T/CUMM (130-400); Red Blood Count 4.81 MC/CUMM (3.8-5.5); Red Cell Distribution Width 13.3 % (9.3-17.3); White Blood Count 8.9 T/CUMM (4-12)
[2019-07-30 04:31] LABS: Osmolality,Calculated 278.3 MOS/KG (273-304)
[2019-07-30] MEDS: NITROGLYCERIN 2% OINT 1 INCH/GM PACK TOP SCH ×2 (06:58→09:41)
[2019-07-30] MEDS: SODIUM CHLORIDE 0.9% 1,000 ML IV SCH ×2 (07:34→09:41)
[2019-07-30 08:23] VITALS: BP 148/100
[2019-07-30] MEDS: PARoxetine 10 MG TABLET PO SCH (10:46)
[2019-07-30] MEDS: CILOSTAZOL 50 MG TABLET PO SCH (10:46)
[2019-07-30] MEDS: TAMSULOSIN 0.4 MG CAPSULE PO SCH (10:47)
[2019-07-30] MEDS: ASPIRIN EC 81 MG TABLET PO SCH (10:47)
[2019-07-30] MEDS: PANTOPRAZOLE 40 MG TABLET PO SCH (10:47)
[2019-07-30] MEDS: CARVEDILOL 25 MG TABLET PO SCH (10:47)
[2019-07-30] MEDS: RANOLAZINE 500 MG TABLET PO SCH (10:47)
[2019-07-30] MEDS: CLOPIDOGREL 75 MG TABLET PO SCH (10:47)
== END 2019-07-30 11:09 | disposition home or self-care (01) ==
LOC: N.ED 09:20 → N.EDINP 09:20 → N.TELES 13:06
PROVIDERS: ADMIT Internal Medicine Cardiovascular Disease; ATTEND Internal Medicine Cardiovascular Disease
PROC: CLCCHCL (ICD-10-PCS; 2019-07-29 07:45)

== ENCOUNTER 2020-06-20 11:43 | Observation (INO) ==
[2020-06-20 12:17] LABS: Basophils # 0.1 10*3/uL (0.0-0.2); Basophils % 0.8 % (0.0-0.8); Eosinophils # 0.2 10*3/uL (0.0-0.87); Eosinophils % 2.5 % (0.00-10.9); Hematocrit 45.9 VOL% (42.0-52.0); Hemoglobin 15.2 GM/DL (14.0-18.0); Immature Granulocytes % 0.6 %; Immature Granulocytes Absolute 0.06 #; Lymphocytes # 2.5 10*3/uL (1.4-4.0); Lymphocytes % 25.9 % (21.2-54.2); Mean Corpuscular HGB Conc 33.1 GM/DL (32-36); Mean Corpuscular Volume 89.1 FL (87-102); Mean Platelet Volume 9.3 FL (9.6-12.0); Monocytes % 7.6 % (1.7-12.7); Neutrophils % 62.6 % (38.7-73.9); Platelet Count 261 T/CUMM (130-400); Red Blood Count 5.15 MC/CUMM (3.8-5.5); Red Cell Distribution Width 13.2 % (9.3-17.3); White Blood Count 9.5 T/CUMM (4-12)
[2020-06-20 12:35] LABS: Albumin 3.8 G/DL (3.4-5.0); Bilirubin,Total 0.4 MG/DL (0.2-1.0); Calcium 9.2 MG/DL (8.5-10.1); Total Protein 7.7 G/DL (6.4-8.3)
[2020-06-20] MEDS ORDERED: ENOXAPARIN 100 MG/ML SYRINGE SUBCUT STA (13:35)
[2020-06-20] MEDS ORDERED: ASPIRIN CHEW 81 MG TABLET PO STA (13:35)
[2020-06-20] MEDS ORDERED: ASPIRIN 325 MG TABLET ONE (13:36)
[2020-06-20] MEDS ORDERED: ENOXAPARIN 100 MG/ML SYRINGE SUBCUT ONE (13:36)
[2020-06-20] MEDS ORDERED: guaiFENesin/DM ER 600-30 MG TABLET PO PRN (14:01)
[2020-06-20] MEDS ORDERED: diphenhydrAMINE CAP 25 MG CAPSULE PO PRN (14:01)
[2020-06-20] MEDS ORDERED: ALUMINUM/MAGNES/SIMETH MAX STR 30 ML UDCUP PO PRN (14:01)
[2020-06-20] MEDS ORDERED: hydrALAZINE 20 MG/1 ML VIAL IV PRN (14:01)
[2020-06-20] MEDS ORDERED: POTASSIUM CHLORIDE 20 MEQ TABLET PO PRN (14:01)
[2020-06-20] MEDS ORDERED: ACETAMINOPHEN 325 MG TABLET PO PRN (14:01)
[2020-06-20] MEDS ORDERED: SIMETHICONE CHEW 125 MG TABLET PO PRN (14:01)
[2020-06-20] MEDS ORDERED: BISACODYL 5 MG TABLET PO PRN (14:01)
[2020-06-20] MEDS ORDERED: ONDANSETRON 4 MG/2 ML VIAL IV PRN (14:01)
[2020-06-20] MEDS ORDERED: LACTULOSE 20 GM/30 ML UDCUP PO PRN (14:01)
[2020-06-20] MEDS ORDERED: MAGNESIUM SULF RIDER 4 GM in PREMIX 1 EACH IV PRN (14:01)
[2020-06-20] MEDS ORDERED: ZALEPLON 5 MG CAPSULE PO PRN ×2 (14:01→15:11)
[2020-06-20] MEDS ORDERED: MAGNESIUM SULF RIDER 2 GM in PREMIX 1 EACH IV PRN (14:01)
[2020-06-20] MEDS ORDERED: HEPARIN/NACL 0.9% 2 UNITS/ML 1,000 ML IV ONE (14:02)
[2020-06-20] MEDS ORDERED: LIDOCAINE 1% 20 ML VIAL ONE (14:02)
[2020-06-20] MEDS ORDERED: DIAZEPAM 5 MG TABLET PO ONE (14:04)
[2020-06-20] MEDS ORDERED: diphenhydrAMINE CAP 25 MG CAPSULE PO ONE (14:04)
[2020-06-20] MEDS ORDERED: traMADol 50 MG TABLET PO PRN (14:06)
[2020-06-20] MEDS ORDERED: SODIUM CHLORIDE 0.9% 1,000 ML IV SCH (14:30)
[2020-06-20] MEDS ORDERED: ENOXAPARIN 40 MG/0.4 ML SYRINGE SUBCUT SCH (14:30)
[2020-06-20] MEDS ORDERED: MIDAZOLAM 2 MG/2 ML VIAL ONE ×2 (14:40→14:50)
[2020-06-20] MEDS ORDERED: fentaNYL 100 MCG/2 ML VIAL ONE (14:41)
[2020-06-20] MEDS ORDERED: GLUCAGON 1 MG VIAL IM PRN (15:11)
[2020-06-20] MEDS ORDERED: DEXTROSE 50% 25 GM/50 ML VIAL IV PRN (15:11)
[2020-06-20] MEDS ORDERED: NITROGLYCERIN SL 0.4 MG TABLET SL PRN (15:12)
[2020-06-20 16:53] LABS: Troponin I < 0.015 NG/ML (0.00-0.045)
[2020-06-20] MEDS: INSULIN REGULAR 100 UNIT/ML SUBCUT SCH ×2 (17:03→20:59)
[2020-06-20 18:33] LABS: Troponin I < 0.015 NG/ML (0.00-0.045)
[2020-06-20] MEDS: RANOLAZINE 500 MG TABLET PO SCH (20:51)
[2020-06-20] MEDS: cilostazoL 50 MG TABLET PO SCH (20:51)
[2020-06-20] MEDS: carvediloL 25 MG TABLET PO SCH (20:51)
[2020-06-20] MEDS: MORPHINE 4 MG/1 ML VIAL IV PRN (20:52)
[2020-06-20] MEDS: PANTOPRAZOLE 40 MG TABLET PO SCH (20:52)
[2020-06-20] MEDS ORDERED: SIMVASTATIN 20 MG TABLET PO SCH (21:00)
[2020-06-21] MEDS: MORPHINE 4 MG/1 ML VIAL IV PRN (00:03)
[2020-06-21 05:47] LABS: Basophils # 0.1 10*3/uL (0.0-0.2); Basophils % 0.9 % (0.0-0.8); Eosinophils # 0.2 10*3/uL (0.0-0.87); Eosinophils % 2.6 % (0.00-10.9); Hemoglobin 14.4 GM/DL (14.0-18.0); Immature Granulocytes % 0.6 %; Immature Granulocytes Absolute 0.05 #; Lymphocytes # 2.2 10*3/uL (1.4-4.0); Lymphocytes % 26.6 % (21.2-54.2); Mean Corpuscular HGB Conc 33.5 GM/DL (32-36); Mean Corpuscular Volume 89.8 FL (87-102); Mean Platelet Volume 9.8 FL (9.6-12.0); Monocytes % 7.3 % (1.7-12.7); Platelet Count 228 T/CUMM (130-400); Red Blood Count 4.79 MC/CUMM (3.8-5.5); Red Cell Distribution Width 13.2 % (9.3-17.3); White Blood Count 8.2 T/CUMM (4-12)
[2020-06-21 06:21] LABS: Blood Urea Nitrogen 9 MG/DL (7-18); Calcium 8.4 MG/DL (8.5-10.1); Estimated Glom Filtration Rate 109 ML/MIN; Glucose 175 MG/DL (74-106); HDL Cholesterol 19 MG/DL (40-60); Osmolality,Calculated 277.7 MOS/KG (273-304); Risk Ratio 7.05; Thyroid Stimulating Hormone 0.944 uIU/ml (0.358-3.74); Triglycerides 690 MG/DL (2-150); Troponin I < 0.015 NG/ML (0.00-0.045)
[2020-06-21] MEDS ORDERED: PANTOPRAZOLE 40 MG TABLET PO SCH (09:00)
[2020-06-21] MEDS ORDERED: CLOPIDOGREL 75 MG TABLET PO SCH (09:00)
[2020-06-21] MEDS ORDERED: PARoxetine 20 MG TABLET PO SCH (09:00)
[2020-06-21] MEDS: carvediloL 25 MG TABLET PO SCH (09:06)
[2020-06-21] MEDS: RANOLAZINE 500 MG TABLET PO SCH (09:06)
[2020-06-21] MEDS: PANTOPRAZOLE 40 MG TABLET PO SCH (09:06)
[2020-06-21] MEDS: cilostazoL 50 MG TABLET PO SCH (09:06)
[2020-06-21 09:40] VITALS: BP 141/87
[2020-06-21] MEDS ORDERED: PNEUMOCOCCAL VACCINE (23 VALENT) 0.5 ML VIAL IM ONE (10:00)
== END 2020-06-21 10:15 | disposition home or self-care (01) ==
LOC: N.ED 11:43 → N.TELEN 11:43
PROVIDERS: ADMIT Internal Medicine Cardiovascular Disease; ATTEND Internal Medicine Cardiovascular Disease
PROC: CLCCHCL (ICD-10-PCS; 2020-06-20 15:15)

== ENCOUNTER 2022-03-04 11:04 | Inpatient (IN) ==
[2022-03-04] MEDS ORDERED: MIDAZOLAM 100 MG in SODIUM CHLORIDE 0.9% 80 ML IV PRN (13:18)
[2022-03-04] MEDS ORDERED: ENOXAPARIN 40 MG/0.4 ML SYRINGE SUBCUT SCH (13:30)
[2022-03-04 13:36] LABS: Basophils % 0.2 % (0.0-0.8); Eosinophils % 0.1 % (0.00-10.9); Hematocrit 42.5 VOL% (42.0-52.0); Hemoglobin 14.4 GM/DL (14.0-18.0); Immature Granulocytes % 0.8 %; Immature Granulocytes Absolute 0.11 #; Lymphocytes # 0.8 10*3/uL (1.4-4.0); Lymphocytes % 5.8 % (21.2-54.2); Mean Corpuscular HGB Conc 33.9 GM/DL (32-36); Mean Corpuscular Volume 92.6 FL (87-102); Mean Platelet Volume 9.2 FL (9.6-12.0); Monocytes # 0.6 10*3/uL (0.11-0.8); Monocytes % 4.7 % (1.7-12.7); Neutrophils % 88.4 % (38.7-73.9); Platelet Count 214 T/CUMM (130-400); Red Blood Count 4.59 MC/CUMM (3.8-5.5); Red Cell Distribution Width 13.5 % (9.3-17.3); White Blood Count 13.4 T/CUMM (4-12)
[2022-03-04 13:59] LABS: Albumin 3.6 G/DL (3.4-5.0); Bilirubin,Total 0.4 MG/DL (0.20-1.00); Calcium 9.1 MG/DL (8.5-10.1); Osmolality,Calculated 273.7 MOS/KG (273-304); Potassium 4.6 MMOL/L (3.5-5.1); Total Protein 6.8 G/DL (6.4-8.2)
[2022-03-04 15:07] LABS: Arterial Base Excess iSTAT -3 MMOL/L (-2.5-2.5); Arterial Bicarbonate iSTAT 22.6 MMOL/L (20-26); Arterial O2 Saturation iSTAT 99 % (95-100); Arterial PCO2 iSTAT 41 MM HG (35-48); Arterial PO2 iSTAT 150 MM HG (80-95); Arterial Total CO2 iSTAT 24 MMO/L (23-27); Arterial pH iSTAT 7.346 (7.35-7.45)
[2022-03-04] MEDS ORDERED: ENOXAPARIN 100 MG/ML SYRINGE SUBCUT SCH (15:30)
[2022-03-04 16:44] LABS: Arterial Base Excess iSTAT -3 MMOL/L (-2.5-2.5); Arterial Bicarbonate iSTAT 21.5 MMOL/L (20-26); Arterial O2 Saturation iSTAT 96 % (95-100); Arterial PCO2 iSTAT 38 MM HG (35-48); Arterial PO2 iSTAT 88 MM HG (80-95); Arterial Total CO2 iSTAT 23 MMO/L (23-27); Arterial pH iSTAT 7.364 (7.35-7.45)
[2022-03-04] MEDS ORDERED: FUROSEMIDE 40 MG/4 ML VIAL ONE (16:58)
[2022-03-04] MEDS ORDERED: ONDANSETRON 4 MG/2 ML VIAL ONE (17:12)
[2022-03-04] MEDS ORDERED: FUROSEMIDE 40 MG/4 ML VIAL IV ONE (17:30)
[2022-03-04] MEDS: ALBUTEROL/IPRATROPIUM 3 ML NEB RESP TX SCH (18:56)
[2022-03-04] MEDS: CLOPIDOGREL 75 MG TABLET PO SCH (19:29)
[2022-03-04 20:49] LABS: Bilirubin,Urine Negative (Negative); Blood, Urine Trace mg/dL (Negative); Glucose,Urine (UA) Negative (Negative); Ketones,Urine Negative (Negative); Nitrite,Urine Negative (Negative); Protein,Urine Negative (Negative); Urine Appearance Clear (Clear); Urine Color Yellow (Yellow); Urine Specific Gravity 1.015 (1.001-1.035); Urine Urobilinogen 0.2 eU/dL (<2.0)
[2022-03-04 20:51] LABS: Bacteria,Urine Occasional /HPF (Few); Mucus,Urine Occasional /LPF (Occasional); Squamous Epithelial Cell,Urine Occasional /HPF (0-10)
[2022-03-04] MEDS: cilostazoL 50 MG TABLET PO SCH (21:49)
[2022-03-04] MEDS: SIMVASTATIN 20 MG TABLET PO SCH (21:49)
[2022-03-04] MEDS: carvediloL 25 MG TABLET PO SCH (21:49)
[2022-03-05] MEDS: ALBUTEROL/IPRATROPIUM 3 ML NEB RESP TX SCH ×4 (00:14→18:59)
[2022-03-05] MEDS ORDERED: ACETAMINOPHEN 325 MG TABLET PO PRN (04:04)
[2022-03-05] MEDS ORDERED: KETOROLAC 30 MG/1 ML VIAL IM ONE (04:19)
[2022-03-05 04:26] LABS: Basophils % 0.2 % (0.0-0.8); Eosinophils % 0.2 % (0.00-10.9); Hematocrit 43.3 VOL% (42.0-52.0); Hemoglobin 14.6 GM/DL (14.0-18.0); Immature Granulocytes % 0.6 %; Immature Granulocytes Absolute 0.09 #; Lymphocytes # 1.9 10*3/uL (1.4-4.0); Lymphocytes % 13.2 % (21.2-54.2); Mean Corpuscular HGB Conc 33.7 GM/DL (32-36); Mean Corpuscular Volume 92.5 FL (87-102); Mean Platelet Volume 9.4 FL (9.6-12.0); Monocytes # 0.9 10*3/uL (0.11-0.8); Monocytes % 6.3 % (1.7-12.7); Neutrophils % 79.5 % (38.7-73.9); Platelet Count 230 T/CUMM (130-400); Red Blood Count 4.68 MC/CUMM (3.8-5.5); Red Cell Distribution Width 13.3 % (9.3-17.3); White Blood Count 14.2 T/CUMM (4-12)
[2022-03-05 04:51] LABS: Calcium 9.1 MG/DL (8.5-10.1); Osmolality,Calculated 274.7 MOS/KG (273-304); Potassium 3.8 MMOL/L (3.5-5.1); Risk Ratio 3.93; Thyroid Stimulating Hormone 0.698 uIU/ml (0.358-3.74); VLDL Cholesterol 36.4 MG/DL
[2022-03-05] MEDS ORDERED: hydrALAZINE 20 MG/1 ML VIAL IV PRN (07:08)
[2022-03-05] MEDS ORDERED: amLODIPine 5 MG TABLET PO SCH (09:00)
[2022-03-05] MEDS ORDERED: VALSARTAN 80 MG TABLET PO SCH (09:00)
[2022-03-05] MEDS ORDERED: RANOLAZINE 500 MG TABLET PO SCH (09:00)
[2022-03-05] MEDS: VALSARTAN 80 MG TABLET PO SCH (09:09)
[2022-03-05] MEDS: cilostazoL 50 MG TABLET PO SCH ×2 (09:09→20:18)
[2022-03-05] MEDS: amLODIPine 5 MG TABLET PO SCH ×2 (09:10→20:17)
[2022-03-05] MEDS: ENOXAPARIN 40 MG/0.4 ML SYRINGE SUBCUT SCH (09:10)
[2022-03-05] MEDS: TAMSULOSIN 0.4 MG CAPSULE PO SCH (09:10)
[2022-03-05] MEDS: CLOPIDOGREL 75 MG TABLET PO SCH (09:10)
[2022-03-05] MEDS: PANTOPRAZOLE 40 MG TABLET PO SCH ×2 (09:10→20:17)
[2022-03-05] MEDS: RANOLAZINE 500 MG TABLET PO SCH ×2 (09:10→20:18)
[2022-03-05] MEDS: carvediloL 25 MG TABLET PO SCH ×2 (09:10→20:18)
[2022-03-05] MEDS: PARoxetine 10 MG TABLET PO SCH (09:11)
[2022-03-05] MEDS: NICOTINE 21 MG/24 HR PATCH TRANSDERM SCH (09:11)
[2022-03-05] MEDS ORDERED: KETOROLAC 30 MG/1 ML VIAL IV ONE (10:46)
[2022-03-05] MEDS: SIMVASTATIN 20 MG TABLET PO SCH (20:18)
[2022-03-05] MEDS: KETOROLAC 30 MG/1 ML VIAL IV PRN (20:33)
[2022-03-06] MEDS: ALBUTEROL/IPRATROPIUM 3 ML NEB RESP TX SCH ×5 (00:15→23:35)
[2022-03-06 03:57] LABS: Basophils # 0.1 10*3/uL (0.0-0.2); Basophils % 0.5 % (0.0-0.8); Eosinophils # 0.1 10*3/uL (0.0-0.87); Eosinophils % 0.7 % (0.00-10.9); Hematocrit 37.3 VOL% (42.0-52.0); Hemoglobin 13.1 GM/DL (14.0-18.0); Immature Granulocytes % 0.7 %; Immature Granulocytes Absolute 0.08 #; Lymphocytes # 1.4 10*3/uL (1.4-4.0); Lymphocytes % 11.3 % (21.2-54.2); Mean Corpuscular HGB Conc 35.1 GM/DL (32-36); Mean Corpuscular Volume 90.1 FL (87-102); Mean Platelet Volume 9.5 FL (9.6-12.0); Monocytes # 0.8 10*3/uL (0.11-0.8); Monocytes % 6.4 % (1.7-12.7); Neutrophils % 80.4 % (38.7-73.9); Platelet Count 183 T/CUMM (130-400); Red Blood Count 4.14 MC/CUMM (3.8-5.5); Red Cell Distribution Width 12.8 % (9.3-17.3); White Blood Count 12.3 T/CUMM (4-12)
[2022-03-06 04:14] LABS: Calcium 8.8 MG/DL (8.5-10.1); Osmolality,Calculated 262.7 MOS/KG (273-304); Potassium 3.2 MMOL/L (3.5-5.1)
[2022-03-06] MEDS: KETOROLAC 30 MG/1 ML VIAL IV PRN ×2 (04:35→10:31)
[2022-03-06] MEDS ORDERED: POTASSIUM CHLORIDE 20 MEQ TABLET PO ONE ×2 (07:28→09:28)
[2022-03-06] MEDS ORDERED: FUROSEMIDE 40 MG/4 ML VIAL IV ONE (08:30)
[2022-03-06] MEDS: cilostazoL 50 MG TABLET PO SCH ×2 (09:15→20:13)
[2022-03-06] MEDS: VALSARTAN 80 MG TABLET PO SCH (09:15)
[2022-03-06] MEDS: RANOLAZINE 500 MG TABLET PO SCH ×2 (09:17→20:13)
[2022-03-06] MEDS: carvediloL 25 MG TABLET PO SCH ×2 (09:17→20:13)
[2022-03-06] MEDS: CLOPIDOGREL 75 MG TABLET PO SCH (09:17)
[2022-03-06] MEDS: PANTOPRAZOLE 40 MG TABLET PO SCH ×2 (09:17→20:13)
[2022-03-06] MEDS: amLODIPine 5 MG TABLET PO SCH ×2 (09:17→20:13)
[2022-03-06] MEDS: PARoxetine 10 MG TABLET PO SCH (09:17)
[2022-03-06] MEDS: TAMSULOSIN 0.4 MG CAPSULE PO SCH (09:18)
[2022-03-06] MEDS: ENOXAPARIN 40 MG/0.4 ML SYRINGE SUBCUT SCH (09:18)
[2022-03-06] MEDS: NICOTINE 21 MG/24 HR PATCH TRANSDERM SCH (09:21)
[2022-03-06] MEDS ORDERED: fentaNYL 25 MCG/HR PATCH TRANSDERM SCH (10:08)
[2022-03-06] MEDS: oxyCODONE/ACETAMINOPHEN 5-325 MG TABLET PO PRN ×2 (14:11→18:14)
[2022-03-06] MEDS: SIMVASTATIN 20 MG TABLET PO SCH (20:13)
[2022-03-06] MEDS ORDERED: KETOROLAC 30 MG/1 ML VIAL IV ONE (20:26)
[2022-03-07] MEDS: oxyCODONE/ACETAMINOPHEN 5-325 MG TABLET PO PRN ×3 (03:52→13:34)
[2022-03-07 05:03] LABS: Basophils % 0.3 % (0.0-0.8); Eosinophils # 0.3 10*3/uL (0.0-0.87); Eosinophils % 1.8 % (0.00-10.9); Hematocrit 37.9 VOL% (42.0-52.0); Hemoglobin 13.2 GM/DL (14.0-18.0); Immature Granulocytes % 0.7 %; Lymphocytes # 1.1 10*3/uL (1.4-4.0); Lymphocytes % 8.1 % (21.2-54.2); Mean Corpuscular HGB Conc 34.8 GM/DL (32-36); Mean Corpuscular Volume 90.2 FL (87-102); Mean Platelet Volume 9.6 FL (9.6-12.0); Monocytes # 0.7 10*3/uL (0.11-0.8); Monocytes % 5.4 % (1.7-12.7); Neutrophils % 83.7 % (38.7-73.9); Platelet Count 209 T/CUMM (130-400); Red Cell Distribution Width 12.6 % (9.3-17.3); White Blood Count 13.5 T/CUMM (4-12)
[2022-03-07 05:15] LABS: Calcium 9.1 MG/DL (8.5-10.1); Osmolality,Calculated 259.8 MOS/KG (273-304); Potassium 3.5 MMOL/L (3.5-5.1)
[2022-03-07] MEDS: ALBUTEROL/IPRATROPIUM 3 ML NEB RESP TX SCH ×2 (07:38→13:50)
[2022-03-07] MEDS: RANOLAZINE 500 MG TABLET PO SCH (08:56)
[2022-03-07] MEDS: ENOXAPARIN 40 MG/0.4 ML SYRINGE SUBCUT SCH (08:56)
[2022-03-07] MEDS: VALSARTAN 80 MG TABLET PO SCH (08:56)
[2022-03-07] MEDS: TAMSULOSIN 0.4 MG CAPSULE PO SCH (08:56)
[2022-03-07] MEDS: PANTOPRAZOLE 40 MG TABLET PO SCH (08:56)
[2022-03-07] MEDS: CLOPIDOGREL 75 MG TABLET PO SCH (08:57)
[2022-03-07] MEDS: PARoxetine 10 MG TABLET PO SCH (08:57)
[2022-03-07] MEDS: carvediloL 25 MG TABLET PO SCH (08:57)
[2022-03-07] MEDS: amLODIPine 5 MG TABLET PO SCH (08:57)
[2022-03-07] MEDS: cilostazoL 50 MG TABLET PO SCH (08:57)
[2022-03-07] MEDS: NICOTINE 21 MG/24 HR PATCH TRANSDERM SCH (08:58)
[2022-03-07] MEDS ORDERED: BUDESONIDE/FORMOTEROL 160-4.5 INHALER 6 GM INH SCH (09:00)
[2022-03-07 14:02] VITALS: BP 138/71
== END 2022-03-07 15:30 | disposition home or self-care (01) | DRG 282 ==
LOC: N.ICU 13:06 → N.TELEN 03-06 14:54
PROVIDERS: ADMIT Internal Medicine Cardiovascular Disease; ATTEND Internal Medicine Cardiovascular Disease

== ENCOUNTER 2022-03-08 12:51 | Inpatient (IN) ==
[2022-03-08] MEDS ORDERED: ONDANSETRON 4 MG/2 ML VIAL IV STA (14:08)
[2022-03-08 14:32] LABS: Basophils % 0.1 % (0.0-0.8); Eosinophils % 0.3 % (0.00-10.9); Hematocrit 33.8 VOL% (42.0-52.0); Hemoglobin 12.1 GM/DL (14.0-18.0); Immature Granulocytes Absolute 0.12 #; Lymphocytes # 0.6 10*3/uL (1.4-4.0); Lymphocytes % 5.4 % (21.2-54.2); Mean Corpuscular HGB Conc 35.8 GM/DL (32-36); Mean Platelet Volume 9.6 FL (9.6-12.0); Monocytes # 0.6 10*3/uL (0.11-0.8); Monocytes % 5.1 % (1.7-12.7); Neutrophils % 88.1 % (38.7-73.9); Platelet Count 218 T/CUMM (130-400); Red Blood Count 3.84 MC/CUMM (3.8-5.5); Red Cell Distribution Width 12.2 % (9.3-17.3); White Blood Count 11.7 T/CUMM (4-12)
[2022-03-08 14:46] LABS: INR 1.1; PT Patient Result 12.8 SECS (10.5-12.0); Partial Thromboplastin Time 32.8 SECS (23.8-32.1)
[2022-03-08 14:53] LABS: Lactic Acid 1.1 MMOL/L (0.4-2.0)
[2022-03-08 15:10] LABS: Albumin 3.2 G/DL (3.4-5.0); Bilirubin,Total 1.1 MG/DL (0.20-1.00); Calcium 8.4 MG/DL (8.5-10.1); Osmolality,Calculated 247.8 MOS/KG (273-304); Potassium 3.8 MMOL/L (3.5-5.1); Total Protein 6.2 G/DL (6.4-8.2)
[2022-03-08 16:57] LABS: Mucus,Urine Occasional /LPF (Occasional); RBC,Urine 2 /HPF (0-4)
[2022-03-08 16:58] LABS: Urine Appearance Clear (Clear); Urine Color Yellow (Yellow)
[2022-03-08 16:59] LABS: Bilirubin,Urine Negative (Negative); Blood, Urine Negative (Negative); Glucose,Urine (UA) Negative (Negative); Ketones,Urine 40 mg/dL (Negative); Nitrite,Urine Negative (Negative); Protein,Urine 1+ mg/dL (Negative)
[2022-03-08 17:09] LABS: Barbiturates Screen,Urine Negative (Negative); Benzodiazepines Screen,Urine Negative (Negative); Cannabinoid Screen,Urine Negative (Negative); Opiate Screen,Urine Positive (Negative); Phencyclidine Screen,Urine Negative (Negative)
[2022-03-08] MEDS ORDERED: ALBUTEROL/IPRATROPIUM 3 ML NEB RESP TX STA (17:34)
[2022-03-08] MEDS ORDERED: ACETAMINOPHEN 325 MG TABLET PO PRN (19:19)
[2022-03-08] MEDS ORDERED: ONDANSETRON 4 MG/2 ML VIAL IV PRN (19:19)
[2022-03-08] MEDS ORDERED: hydrALAZINE 20 MG/1 ML VIAL IV PRN (19:19)
[2022-03-08] MEDS ORDERED: GLUCAGON 1 MG VIAL IM PRN (19:19)
[2022-03-08] MEDS ORDERED: DOCUSATE SODIUM 100 MG CAPSULE PO PRN (19:19)
[2022-03-08] MEDS ORDERED: guaiFENesin 200 MG/10 ML UDCUP PO PRN (19:27)
[2022-03-08] MEDS ORDERED: DEXTROSE 10% 250 ML BAG IV PRN (19:32)
[2022-03-08] MEDS ORDERED: MEROPENEM 500 MG in SODIUM CHLORIDE 0.9% 100 ML IV SCH (20:00)
[2022-03-08] MEDS: SODIUM CHLORIDE 0.9% 1,000 ML IV SCH (20:03)
[2022-03-08 20:07] LABS: Thyroid Stimulating Hormone 0.882 uIU/ml (0.358-3.74)
[2022-03-08 20:26] LABS: Basophils % 0.1 % (0.0-0.8); Eosinophils # 0.1 10*3/uL (0.0-0.87); Eosinophils % 1.2 % (0.00-10.9); Hematocrit 33.4 VOL% (42.0-52.0); Hemoglobin 12.1 GM/DL (14.0-18.0); Immature Granulocytes % 1.2 %; Immature Granulocytes Absolute 0.14 #; Lymphocytes # 0.8 10*3/uL (1.4-4.0); Lymphocytes % 7.3 % (21.2-54.2); Mean Corpuscular HGB Conc 36.2 GM/DL (32-36); Mean Corpuscular Volume 86.5 FL (87-102); Mean Platelet Volume 9.3 FL (9.6-12.0); Monocytes # 0.7 10*3/uL (0.11-0.8); Monocytes % 6.2 % (1.7-12.7); Platelet Count 199 T/CUMM (130-400); Red Blood Count 3.86 MC/CUMM (3.8-5.5); Red Cell Distribution Width 12.1 % (9.3-17.3); White Blood Count 11.3 T/CUMM (4-12)
[2022-03-08 20:53] LABS: Folate 5.19 NG/ML (5.38-24.0); Vitamin B12 308 PG/ML (211-911)
[2022-03-08] MEDS: SIMVASTATIN 20 MG TABLET PO SCH (21:38)
[2022-03-08] MEDS: ENOXAPARIN 40 MG/0.4 ML SYRINGE SUBCUT SCH (21:41)
[2022-03-08] MEDS: methylPREDNISolone SOD SUC 40 MG/1 ML VIAL IV SCH (21:42)
[2022-03-08] MEDS: PIPERACILLIN/TAZOBACTAM 3,375 MG in SODIUM CHLORIDE 0.9% 100 ML IV SCH (21:50)
[2022-03-08] MEDS: amLODIPine 5 MG TABLET PO SCH (21:50)
[2022-03-08] MEDS: BUDESONIDE/FORMOTEROL 160-4.5 INHALER 6 GM INH SCH (23:57)
[2022-03-08] MEDS: NICOTINE 21 MG/24 HR PATCH TRANSDERM PRN (23:59)
[2022-03-09] MEDS: ZALEPLON 5 MG CAPSULE PO PRN ×2 (00:05→21:04)
[2022-03-09] MEDS: cilostazoL 50 MG TABLET PO SCH ×3 (00:05→21:06)
[2022-03-09] MEDS: ALBUTEROL 2.5 MG/3 ML NEB RESP TX SCH ×4 (02:53→18:57)
[2022-03-09] MEDS: PIPERACILLIN/TAZOBACTAM 3,375 MG in SODIUM CHLORIDE 0.9% 100 ML IV SCH ×3 (05:45→21:02)
[2022-03-09] MEDS: methylPREDNISolone SOD SUC 40 MG/1 ML VIAL IV SCH ×3 (05:46→21:03)
[2022-03-09 05:55] LABS: Basophils % 0.1 % (0.0-0.8); Eosinophils % 0.1 % (0.00-10.9); Hematocrit 33.4 VOL% (42.0-52.0); Hemoglobin 12.1 GM/DL (14.0-18.0); Immature Granulocytes % 0.9 %; Immature Granulocytes Absolute 0.09 #; Lymphocytes # 0.4 10*3/uL (1.4-4.0); Lymphocytes % 3.8 % (21.2-54.2); Mean Corpuscular HGB Conc 36.2 GM/DL (32-36); Mean Corpuscular Volume 86.3 FL (87-102); Mean Platelet Volume 9.5 FL (9.6-12.0); Monocytes # 0.3 10*3/uL (0.11-0.8); Monocytes % 2.6 % (1.7-12.7); Neutrophils % 92.5 % (38.7-73.9); Platelet Count 235 T/CUMM (130-400); Red Blood Count 3.87 MC/CUMM (3.8-5.5); White Blood Count 10.2 T/CUMM (4-12)
[2022-03-09 06:08] LABS: Bilirubin,Total 0.9 MG/DL (0.20-1.00); Calcium 9.2 MG/DL (8.5-10.1); Osmolality,Calculated 244.1 MOS/KG (273-304); Potassium 3.7 MMOL/L (3.5-5.1); Total Protein 6.7 G/DL (6.4-8.2)
[2022-03-09 08:30] LABS: Platelet Estimate Normal; Total Cells Counted 100
[2022-03-09] MEDS: SODIUM CHLORIDE 0.9% 1,000 ML IV SCH (08:53)
[2022-03-09] MEDS: RANOLAZINE 500 MG TABLET PO SCH ×2 (08:56→21:05)
[2022-03-09] MEDS: PANTOPRAZOLE 40 MG TABLET PO SCH (08:57)
[2022-03-09] MEDS: VALSARTAN 80 MG TABLET PO SCH (08:57)
[2022-03-09] MEDS: CLOPIDOGREL 75 MG TABLET PO SCH (08:58)
[2022-03-09] MEDS: PARoxetine 20 MG TABLET PO SCH (08:58)
[2022-03-09] MEDS: amLODIPine 5 MG TABLET PO SCH ×2 (08:59→21:04)
[2022-03-09] MEDS: ASPIRIN EC 81 MG TABLET PO SCH (09:00)
[2022-03-09] MEDS: BUDESONIDE/FORMOTEROL 160-4.5 INHALER 6 GM INH SCH ×2 (09:01→21:07)
[2022-03-09] MEDS ORDERED: FOLIC ACID 1 MG TABLET PO SCH (21:00)
[2022-03-09] MEDS: ENOXAPARIN 40 MG/0.4 ML SYRINGE SUBCUT SCH (21:03)
[2022-03-09] MEDS: SIMVASTATIN 20 MG TABLET PO SCH (21:05)
[2022-03-10] MEDS: ALBUTEROL 2.5 MG/3 ML NEB RESP TX SCH ×4 (00:02→19:30)
[2022-03-10] MEDS: methylPREDNISolone SOD SUC 40 MG/1 ML VIAL IV SCH ×3 (04:10→13:59)
[2022-03-10] MEDS: PIPERACILLIN/TAZOBACTAM 3,375 MG in SODIUM CHLORIDE 0.9% 100 ML IV SCH ×3 (04:11→20:48)
[2022-03-10 05:30] LABS: Basophils % 0.1 % (0.0-0.8); Hemoglobin 11.7 GM/DL (14.0-18.0); Immature Granulocytes % 1.1 %; Immature Granulocytes Absolute 0.17 #; Lymphocytes # 0.7 10*3/uL (1.4-4.0); Lymphocytes % 4.4 % (21.2-54.2); Mean Corpuscular HGB Conc 35.5 GM/DL (32-36); Mean Corpuscular Volume 87.5 FL (87-102); Mean Platelet Volume 9.2 FL (9.6-12.0); Monocytes # 0.7 10*3/uL (0.11-0.8); Monocytes % 4.4 % (1.7-12.7); Platelet Count 277 T/CUMM (130-400); Red Blood Count 3.77 MC/CUMM (3.8-5.5); Red Cell Distribution Width 12.4 % (9.3-17.3); White Blood Count 15.6 T/CUMM (4-12)
[2022-03-10 05:45] LABS: Osmolality,Calculated 269.2 MOS/KG (273-304); Potassium 3.7 MMOL/L (3.5-5.1)
[2022-03-10 07:32] LABS: Lymphocytes 6 % (20-55); Platelet Estimate Normal; Total Cells Counted 100
[2022-03-10] MEDS: ASPIRIN EC 81 MG TABLET PO SCH (09:47)
[2022-03-10] MEDS: cilostazoL 50 MG TABLET PO SCH ×2 (09:47→20:57)
[2022-03-10] MEDS: PARoxetine 20 MG TABLET PO SCH (09:48)
[2022-03-10] MEDS: PANTOPRAZOLE 40 MG TABLET PO SCH (09:48)
[2022-03-10] MEDS: RANOLAZINE 500 MG TABLET PO SCH ×2 (09:48→20:49)
[2022-03-10] MEDS: amLODIPine 5 MG TABLET PO SCH ×2 (09:48→20:49)
[2022-03-10] MEDS: CLOPIDOGREL 75 MG TABLET PO SCH (09:48)
[2022-03-10] MEDS: carvediloL 25 MG TABLET PO SCH ×2 (09:48→16:47)
[2022-03-10] MEDS: VALSARTAN 80 MG TABLET PO SCH (09:48)
[2022-03-10] MEDS: FOLIC ACID 1 MG TABLET PO SCH (09:49)
[2022-03-10] MEDS: BUDESONIDE/FORMOTEROL 160-4.5 INHALER 6 GM INH SCH ×2 (09:50→20:59)
[2022-03-10] MEDS: NICOTINE 21 MG/24 HR PATCH TRANSDERM PRN (11:40)
[2022-03-10] MEDS: IBUPROFEN 400 MG TABLET PO PRN ×2 (13:59→21:58)
[2022-03-10] MEDS: ENOXAPARIN 40 MG/0.4 ML SYRINGE SUBCUT SCH (20:49)
[2022-03-10] MEDS: SIMVASTATIN 20 MG TABLET PO SCH (20:49)
[2022-03-10] MEDS: ZALEPLON 5 MG CAPSULE PO PRN (20:49)
[2022-03-11] MEDS: ALBUTEROL 2.5 MG/3 ML NEB RESP TX SCH ×4 (00:19→19:44)
[2022-03-11] MEDS: methylPREDNISolone SOD SUC 40 MG/1 ML VIAL IV SCH (02:04)
[2022-03-11] MEDS: PIPERACILLIN/TAZOBACTAM 3,375 MG in SODIUM CHLORIDE 0.9% 100 ML IV SCH ×3 (03:14→21:16)
[2022-03-11 05:07] LABS: Basophils # 0.1 10*3/uL (0.0-0.2); Basophils % 0.3 % (0.0-0.8); Hematocrit 35.3 VOL% (42.0-52.0); Hemoglobin 12.4 GM/DL (14.0-18.0); Immature Granulocytes % 2.8 %; Immature Granulocytes Absolute 0.48 #; Lymphocytes # 1.8 10*3/uL (1.4-4.0); Lymphocytes % 10.6 % (21.2-54.2); Mean Corpuscular HGB Conc 35.1 GM/DL (32-36); Mean Corpuscular Volume 90.3 FL (87-102); Monocytes # 1.1 10*3/uL (0.11-0.8); Monocytes % 6.2 % (1.7-12.7); Neutrophils % 80.1 % (38.7-73.9); Platelet Count 293 T/CUMM (130-400); Red Blood Count 3.91 MC/CUMM (3.8-5.5); White Blood Count 17.2 T/CUMM (4-12)
[2022-03-11 05:40] LABS: Calcium 8.6 MG/DL (8.5-10.1); Osmolality,Calculated 277.5 MOS/KG (273-304); Potassium 3.2 MMOL/L (3.5-5.1)
[2022-03-11] MEDS ORDERED: POTASSIUM CHLORIDE 20 MEQ TABLET PO ONE (07:35)
[2022-03-11] MEDS: PARoxetine 20 MG TABLET PO SCH (09:03)
[2022-03-11] MEDS: RANOLAZINE 500 MG TABLET PO SCH ×2 (09:03→21:13)
[2022-03-11] MEDS: carvediloL 25 MG TABLET PO SCH ×2 (09:03→16:56)
[2022-03-11] MEDS: PANTOPRAZOLE 40 MG TABLET PO SCH (09:03)
[2022-03-11] MEDS: amLODIPine 5 MG TABLET PO SCH ×2 (09:03→21:14)
[2022-03-11] MEDS: ASPIRIN EC 81 MG TABLET PO SCH (09:04)
[2022-03-11] MEDS: CLOPIDOGREL 75 MG TABLET PO SCH (09:04)
[2022-03-11] MEDS: FOLIC ACID 1 MG TABLET PO SCH (09:04)
[2022-03-11] MEDS: VALSARTAN 80 MG TABLET PO SCH (09:04)
[2022-03-11] MEDS: BUDESONIDE/FORMOTEROL 160-4.5 INHALER 6 GM INH SCH ×2 (09:05→21:16)
[2022-03-11] MEDS: cilostazoL 50 MG TABLET PO SCH ×2 (09:08→21:14)
[2022-03-11] MEDS: FLUCONAZOLE INJ 200 MG/100 ML PREMIX IV SCH (11:18)
[2022-03-11] MEDS: ZALEPLON 5 MG CAPSULE PO PRN (21:13)
[2022-03-11] MEDS: IBUPROFEN 400 MG TABLET PO PRN (21:14)
[2022-03-11] MEDS: SIMVASTATIN 20 MG TABLET PO SCH (21:14)
[2022-03-11] MEDS: ENOXAPARIN 40 MG/0.4 ML SYRINGE SUBCUT SCH (21:15)
[2022-03-11] MEDS ORDERED: KETOROLAC 15 MG/1 ML VIAL IV PRN (22:44)
[2022-03-12] MEDS: ALBUTEROL 2.5 MG/3 ML NEB RESP TX SCH ×2 (00:15→07:20)
[2022-03-12 05:22] LABS: Basophils # 0.1 10*3/uL (0.0-0.2); Basophils % 0.6 % (0.0-0.8); Eosinophils # 0.2 10*3/uL (0.0-0.87); Eosinophils % 1.4 % (0.00-10.9); Hematocrit 37.9 VOL% (42.0-52.0); Immature Granulocytes Absolute 0.77 #; Lymphocytes # 2.8 10*3/uL (1.4-4.0); Lymphocytes % 18.5 % (21.2-54.2); Mean Corpuscular HGB Conc 34.3 GM/DL (32-36); Mean Corpuscular Volume 90.7 FL (87-102); Mean Platelet Volume 8.8 FL (9.6-12.0); Monocytes # 1.1 10*3/uL (0.11-0.8); Monocytes % 7.2 % (1.7-12.7); NRBC # 0.02 10*3/uL; Neutrophils % 67.3 % (38.7-73.9); Platelet Count 276 T/CUMM (130-400); Red Blood Count 4.18 MC/CUMM (3.8-5.5); Red Cell Distribution Width 13.3 % (9.3-17.3); White Blood Count 15.3 T/CUMM (4-12)
[2022-03-12 05:45] LABS: Calcium 8.7 MG/DL (8.5-10.1); Osmolality,Calculated 273.8 MOS/KG (273-304); Potassium 3.6 MMOL/L (3.5-5.1)
[2022-03-12 05:48] LABS: Platelet Estimate Adequate
[2022-03-12] MEDS: PIPERACILLIN/TAZOBACTAM 3,375 MG in SODIUM CHLORIDE 0.9% 100 ML IV SCH (06:45)
[2022-03-12] MEDS: cilostazoL 50 MG TABLET PO SCH (08:56)
[2022-03-12] MEDS: RANOLAZINE 500 MG TABLET PO SCH (08:57)
[2022-03-12] MEDS: ASPIRIN EC 81 MG TABLET PO SCH (08:58)
[2022-03-12] MEDS: amLODIPine 5 MG TABLET PO SCH (08:58)
[2022-03-12] MEDS: carvediloL 25 MG TABLET PO SCH (08:58)
[2022-03-12] MEDS: FOLIC ACID 1 MG TABLET PO SCH (08:58)
[2022-03-12] MEDS: NICOTINE 21 MG/24 HR PATCH TRANSDERM PRN (08:59)
[2022-03-12] MEDS: CLOPIDOGREL 75 MG TABLET PO SCH (08:59)
[2022-03-12] MEDS: PARoxetine 20 MG TABLET PO SCH (08:59)
[2022-03-12] MEDS: PANTOPRAZOLE 40 MG TABLET PO SCH (08:59)
[2022-03-12] MEDS ORDERED: predniSONE 20 MG TABLET PO SCH (09:00)
[2022-03-12] MEDS ORDERED: VALSARTAN 160 MG TABLET PO SCH (09:00)
[2022-03-12] MEDS ORDERED: VALSARTAN 160 MG TABLET PO ONE (10:21)
[2022-03-12] MEDS: FLUCONAZOLE INJ 200 MG/100 ML PREMIX IV SCH (10:36)
[2022-03-12] MEDS: BUDESONIDE/FORMOTEROL 160-4.5 INHALER 6 GM INH SCH (10:41)
[2022-03-12 11:16] VITALS: BP 164/96
[2022-03-13] MEDS ORDERED: VALSARTAN 160 MG TABLET PO SCH ×2 (09:00)
== END 2022-03-12 12:39 | disposition home or self-care (01) | DRG 193 ==
LOC: N.ED 12:51 → N.EDINP 19:19 → N.TELEN 21:37
PROVIDERS: ADMIT Internal Medicine; ATTEND Internal Medicine

== ENCOUNTER 2022-07-29 13:29 | Inpatient (IN) ==
[2022-07-29] MEDS ORDERED: DEXTROSE 10% 250 ML BAG IV PRN (17:27)
[2022-07-29] MEDS ORDERED: GLUCAGON 1 MG VIAL IM PRN (17:27)
[2022-07-29] MEDS ORDERED: ACETAMINOPHEN 325 MG TABLET PO PRN (17:27)
[2022-07-29] MEDS ORDERED: ONDANSETRON 4 MG/2 ML VIAL IV PRN (17:27)
[2022-07-29] MEDS ORDERED: SIMETHICONE CHEW 125 MG TABLET PO PRN (17:27)
[2022-07-29] MEDS ORDERED: MORPHINE 2 MG/1 ML SYRINGE IV PRN (17:27)
[2022-07-29] MEDS ORDERED: ALUMINUM/MAGNES/SIMETH MAX STR 30 ML UDCUP PO PRN (17:27)
[2022-07-29] MEDS ORDERED: NICOTINE 21 MG/24 HR PATCH TRANSDERM PRN (17:27)
[2022-07-29 17:30] LABS: Basophils # 0.1 10*3/uL (0.0-0.2); Basophils % 0.8 % (0.0-0.8); Eosinophils # 0.2 10*3/uL (0.0-0.87); Eosinophils % 2.3 % (0.00-10.9); Hematocrit 45.6 VOL% (42.0-52.0); Hemoglobin 15.5 GM/DL (14.0-18.0); Immature Granulocytes % 0.7 %; Immature Granulocytes Absolute 0.06 #; Lymphocytes # 2.1 10*3/uL (1.4-4.0); Lymphocytes % 22.9 % (21.2-54.2); Mean Corpuscular Volume 90.7 FL (87-102); Mean Platelet Volume 9.7 FL (9.6-12.0); Monocytes # 0.8 10*3/uL (0.11-0.8); Monocytes % 8.1 % (1.7-12.7); Neutrophils % 65.2 % (38.7-73.9); Platelet Count 233 T/CUMM (130-400); Red Blood Count 5.03 MC/CUMM (3.8-5.5); Red Cell Distribution Width 13.9 % (9.3-17.3); White Blood Count 9.2 T/CUMM (4-12)
[2022-07-29] MEDS ORDERED: IBUPROFEN 400 MG TABLET PO PRN (17:33)
[2022-07-29] MEDS ORDERED: NITROGLYCERIN SL 0.4 MG TABLET SL PRN (17:33)
[2022-07-29 17:51] LABS: Albumin 3.7 G/DL (3.4-5.0); Bilirubin,Total 1.4 MG/DL (0.20-1.00); Calcium 9.7 MG/DL (8.5-10.1); Osmolality,Calculated 267.1 MOS/KG (273-304); Potassium 5.9 MMOL/L (3.5-5.1); Total Protein 7.8 G/DL (6.4-8.2)
[2022-07-29] MEDS ORDERED: SODIUM POLYSTYRENE SULFATE 15 GM/60 ML BOTTLE PO STA (17:59)
[2022-07-29] MEDS: carvediloL 25 MG TABLET PO SCH (18:05)
[2022-07-29] MEDS ORDERED: ALUM/MAG/SIMETH/LIDO VISC 1:1 30 ML BOTTLE PO ONE (19:52)
[2022-07-29 20:07] LABS: PT Patient Result 11.4 SECS (10.1-12.1)
[2022-07-29] MEDS: RANOLAZINE 500 MG TABLET PO SCH (21:04)
[2022-07-29] MEDS: cilostazoL 50 MG TABLET PO SCH (21:04)
[2022-07-29] MEDS: ENOXAPARIN 40 MG/0.4 ML SYRINGE SUBCUT SCH (21:04)
[2022-07-29] MEDS: PANTOPRAZOLE 40 MG TABLET PO SCH (21:04)
[2022-07-29] MEDS: BUDESONIDE/FORMOTEROL 160-4.5 INHALER 6 GM INH SCH (21:05)
[2022-07-30 05:47] LABS: Basophils # 0.1 10*3/uL (0.0-0.2); Basophils % 0.6 % (0.0-0.8); Eosinophils # 0.2 10*3/uL (0.0-0.87); Eosinophils % 2.4 % (0.00-10.9); Hemoglobin 14.1 GM/DL (14.0-18.0); Immature Granulocytes % 0.9 %; Immature Granulocytes Absolute 0.07 #; Lymphocytes # 1.9 10*3/uL (1.4-4.0); Lymphocytes % 23.6 % (21.2-54.2); Mean Corpuscular HGB Conc 33.6 GM/DL (32-36); Mean Corpuscular Volume 90.1 FL (87-102); Mean Platelet Volume 9.2 FL (9.6-12.0); Monocytes # 0.7 10*3/uL (0.11-0.8); Monocytes % 9.1 % (1.7-12.7); Neutrophils % 63.4 % (38.7-73.9); Platelet Count 195 T/CUMM (130-400); Red Blood Count 4.66 MC/CUMM (3.8-5.5); Red Cell Distribution Width 13.9 % (9.3-17.3); White Blood Count 7.9 T/CUMM (4-12)
[2022-07-30 06:54] LABS: Alanine Aminotransferase 18 U/L (16-61); Albumin 3.3 G/DL (3.4-5.0); Alkaline Phosphatase 75 U/L (45-117); Aspartate Amino Transferase 13 U/L (0-37); Bilirubin,Total < 0.39 MG/DL (0.20-1.00); Blood Urea Nitrogen 11 MG/DL (7-18); Calcium 9.2 MG/DL (8.5-10.1); Carbon Dioxide 26 MMOL/L (21-32); Chloride 107 MMOL/L (98-107); Cholesterol 127 MG/DL (50-200); Glucose 199 MG/DL (74-106); HDL Cholesterol 30 MG/DL (40-60); Osmolality,Calculated 281.5 MOS/KG (273-304); Potassium 3.5 MMOL/L (3.5-5.1); Risk Ratio 4.23; Sodium 139 MMOL/L (136-145); Thyroid Stimulating Hormone 0.983 uIU/ml (0.358-3.74); Total Protein 6.9 G/DL (6.4-8.2); Triglycerides 213 MG/DL (2-150); VLDL Cholesterol 42.6 MG/DL
[2022-07-30] MEDS ORDERED: PANTOPRAZOLE 40 MG TABLET PO SCH (09:00)
[2022-07-30] MEDS: cilostazoL 50 MG TABLET PO SCH ×2 (09:17→21:05)
[2022-07-30] MEDS: PARoxetine 20 MG TABLET PO SCH (09:17)
[2022-07-30] MEDS: carvediloL 25 MG TABLET PO SCH ×2 (09:18→18:48)
[2022-07-30] MEDS: TAMSULOSIN 0.4 MG CAPSULE PO SCH (09:18)
[2022-07-30] MEDS: ASPIRIN EC 81 MG TABLET PO SCH (09:18)
[2022-07-30] MEDS: RANOLAZINE 500 MG TABLET PO SCH ×2 (09:18→21:05)
[2022-07-30] MEDS: PANTOPRAZOLE 40 MG TABLET PO SCH ×2 (09:18→21:05)
[2022-07-30] MEDS: CLOPIDOGREL 75 MG TABLET PO SCH (09:18)
[2022-07-30] MEDS: LOSARTAN 50 MG TABLET PO SCH (09:20)
[2022-07-30] MEDS: BUDESONIDE/FORMOTEROL 160-4.5 INHALER 6 GM INH SCH ×2 (12:01→21:06)
[2022-07-30] MEDS ORDERED: MAGNESIUM SULF RIDER 2 GM/50 ML PREMIX IV PRN (12:35)
[2022-07-30] MEDS ORDERED: POTASSIUM CHLORIDE RIDER 10 MEQ/100 ML PREMIX IV PRN (12:35)
[2022-07-30] MEDS: SODIUM CHLORIDE 0.9% 1,000 ML IV SCH ×2 (14:16→21:06)
[2022-07-30] MEDS ORDERED: DIAZEPAM 5 MG TABLET PO ONE (14:30)
[2022-07-30] MEDS ORDERED: diphenhydrAMINE CAP 25 MG CAPSULE PO ONE (14:30)
[2022-07-30] MEDS ORDERED: NITROGLYCERIN DRIP 50 MG/250 ML BOTTLE IV ONE (15:23)
[2022-07-30] MEDS ORDERED: HEPARIN/NACL 0.9% 2 UNITS/ML 2,000 UNIT/1,000 ML BAG IV ONE (15:23)
[2022-07-30] MEDS ORDERED: MIDAZOLAM 2 MG/2 ML VIAL ONE ×3 (15:24→16:12)
[2022-07-30] MEDS ORDERED: fentaNYL 100 MCG/2 ML VIAL ONE (15:24)
[2022-07-30] MEDS ORDERED: VERAPAMIL 5 MG/2 ML VIAL ONE (15:36)
[2022-07-30] MEDS ORDERED: HEPARIN 5,000 UNIT/1 ML VIAL ONE ×2 (15:47→16:12)
[2022-07-30] MEDS ORDERED: HEPARIN/NACL 0.9% 2 UNITS/ML 1,000 UNIT/500 ML BAG IV ONE (16:15)
[2022-07-30] MEDS ORDERED: CLOPIDOGREL 300 MG TABLET ONE (16:46)
[2022-07-30] MEDS ORDERED: SIMVASTATIN 20 MG TABLET PO SCH (21:00)
[2022-07-30] MEDS: ENOXAPARIN 40 MG/0.4 ML SYRINGE SUBCUT SCH (21:06)
[2022-07-31] MEDS: SODIUM CHLORIDE 0.9% 1,000 ML IV SCH ×2 (01:22→04:22)
[2022-07-31 05:42] LABS: Basophils # 0.1 10*3/uL (0.0-0.2); Basophils % 0.7 % (0.0-0.8); Eosinophils # 0.2 10*3/uL (0.0-0.87); Eosinophils % 2.4 % (0.00-10.9); Hematocrit 40.2 VOL% (42.0-52.0); Hemoglobin 13.4 GM/DL (14.0-18.0); Immature Granulocytes % 0.7 %; Immature Granulocytes Absolute 0.05 #; Lymphocytes # 1.5 10*3/uL (1.4-4.0); Lymphocytes % 19.9 % (21.2-54.2); Mean Corpuscular HGB Conc 33.3 GM/DL (32-36); Mean Corpuscular Volume 90.5 FL (87-102); Mean Platelet Volume 9.4 FL (9.6-12.0); Monocytes # 0.6 10*3/uL (0.11-0.8); Monocytes % 8.4 % (1.7-12.7); Neutrophils % 67.9 % (38.7-73.9); Platelet Count 180 T/CUMM (130-400); Red Blood Count 4.44 MC/CUMM (3.8-5.5); Red Cell Distribution Width 13.6 % (9.3-17.3); White Blood Count 7.5 T/CUMM (4-12)
[2022-07-31 06:04] LABS: Calcium 8.9 MG/DL (8.5-10.1); Osmolality,Calculated 277.4 MOS/KG (273-304)
[2022-07-31 08:26] VITALS: BP 166/90
[2022-07-31] MEDS: CLOPIDOGREL 75 MG TABLET PO SCH (08:56)
[2022-07-31] MEDS: PANTOPRAZOLE 40 MG TABLET PO SCH (08:56)
[2022-07-31] MEDS: LOSARTAN 50 MG TABLET PO SCH (08:56)
[2022-07-31] MEDS: cilostazoL 50 MG TABLET PO SCH (08:56)
[2022-07-31] MEDS: ASPIRIN EC 81 MG TABLET PO SCH (08:56)
[2022-07-31] MEDS: PARoxetine 20 MG TABLET PO SCH (08:56)
[2022-07-31] MEDS: RANOLAZINE 500 MG TABLET PO SCH (08:57)
[2022-07-31] MEDS: TAMSULOSIN 0.4 MG CAPSULE PO SCH (08:57)
[2022-07-31] MEDS: BUDESONIDE/FORMOTEROL 160-4.5 INHALER 6 GM INH SCH (08:57)
[2022-07-31] MEDS: carvediloL 25 MG TABLET PO SCH (08:57)
== END 2022-07-31 09:06 | disposition home or self-care (01) | DRG 247 ==
LOC: N.EDINP 13:29 → N.ED 13:29 → SUATTDRO 17:27 → N.EDINP 18:55 → N.TELEN 18:56 → SUATTDRO 07-30 10:34
PROVIDERS: ADMIT Internal Medicine; ATTEND Family Medicine